=== PATIENT | female | born 1945 | race Caucasian/White ===

== ENCOUNTER 2021-07-27 20:04 | Observation (INO) | payer OTHER, SELFPAY ==
[2021-07-27] VITALS (7 sets, daily range): BP systolic 127–146; BP diastolic 73–114; PULSE 46–59; RESP 15–20; TEMP 36.1; O2SAT 100
--- NOTE | ~2021-07-27 | US_ITS ---
US abdomen limited INDICATION: Elevated liver function tests. Right upper quadrant pain. PROCEDURE: Realtime right upper abdominal ultrasound. COMPARISON: No prior studies for comparison. FINDINGS: The pancreas is normal without focal mass or pancreatic ductal dilation. Liver echotexture is normal without focal mass or intrahepatic biliary dilatation. There is normal directional flow i n the portal vein. There is a gallstone at the gallbladder neck. Common bile duct measures 4.6 mm. No sonographic Murp hy's sign. IMPRESSION: 1: Cholelithiasis. Reviewed, dictated and finalized at location A. MOTIVE HARDWARE ENGINEER IMPRESSION: 1: Cholelithiasis.
--- NOTE | ~2021-07-27 | XR_ITS ---
EXAMINATION: XR chest 2V DATE: 07/27/2021 20:46 INDICATION: Left-sided chest pain TECHNIQUE: PA and lateral views of the chest were obtained. COMPARISON: Chest radiograph dated 08/08/2007 FINDINGS: The lungs remain clear with no focal airspace opacities, pulmonary edema, pleural effusion or pneumot horax. The cardiomediastinal silhouette is normal. Mild S-shaped scoliosis of the thoracic and lumbar spine with moderate spondylosis. IMPRESSION: 1. No acute cardiopulmonary disease. Reviewed, dictated and finalized at location H. HOUSE OPERATOR
--- NOTE | 2021-07-27 20:07 | ECG_ITS ---
Measurements Intervals [place] Rate: 64 P: 82 GA: 149 QRS: 13 QRSD: 72 T: -49 QT: 394 QTc: 409 Interpretive Statements SINUS RHYTHM LOW QRS VOLTAGE IN PRECORDIAL LEADS T WAVE ABNORMALITY IN ANTEROLAT/INF LEADS- CONSIDER ISCHEMIA ABNORMAL ECG Electronically Signed On 07-28-2021 6:12:37 CHASER HELPER by See Fried D.O.
[2021-07-27 20:47] LABS: Basophils Absolute Auto 0.1 K/mm3 (0.0-0.1); Eosinophils Absolute Auto 1.1 K/mm3 (0-0.3); Eosinophils Percent Auto 15.7 % (0-4.4); Hemoglobin 11.4 g/dL (12.0-15.0); Immature Granulocyte Absolute 0.01 K/mm3 (0.00-0.031); Immature Granulocyte Percent A 0.1 % (0-0.5); Lymphocytes Absolute Auto 1.08 K/mm3 (0.9-3.2); Lymphocytes Percent Auto 15.5 % (18.3-44.2); Mean Corpuscular HGB Conc 32.6 g/dl (32-36); Mean Corpuscular Hemoglobin 31.8 pg (26-34); Mean Corpuscular Volume 97.8 fl (80-100); Monocytes Absolute Auto 0.6 K/mm3 (0.1-0.6); Monocytes Percent Auto 8.2 % (2.6-8.5); Neutrophils Absolute Auto 4.1 K/mm3 (1.3-6.7); Neutrophils Percent Auto 59.5 % (45.5-73.1); Platelet Count Result 173 k/mm3 (150-375); Red Blood Count 3.58 M/mm3 (4.2-5.4); Red Cell Distribution Width 13.2 % (11.5-14.5)
[2021-07-27 20:57] LABS: Alanine Aminotransferase 187 U/L (4-35); Albumin Level 4.5 g/dL (3.5-5.1); Alkaline Phosphatase 289 U/L (38-126); Anion Gap 11 mmol/L (8-16); Aspartate Amino Transferase 164 U/L (14-36); Bilirubin,Total 0.5 mg/dL (0.2-1.3); Blood Urea Nitrogen 15 mg/dL (7-17); Carbon Dioxide 24 mmol/L (22-30); Chloride 106 mmol/L (98-107); Estimated CRCL calculation 34 ml/min; Estimated Glomerular Filt Rate 54; Glucose 130 mg/dL (65-110); Lipase 191 U/L (23-300); Potassium 3.9 mmol/L (3.4-5.0); Sodium 141 mmol/L (137-145)
[2021-07-27 20:59] LABS: Prothrombin Time 12.8 Seconds (11.1-14.7)
[2021-07-27 21:00] LABS: Partial Thromboplastin Time 26.1 SECONDS (22.3-36.8)
[2021-07-27 21:11] LABS: Troponin I 0.057 ng/mL (0.000-0.034)
--- NOTE | 2021-07-27 21:57 | ED.GENADULT ---
HPI - General Adult General Chief complaint: Chest Pain Stated complaint: stabbing pain underneath my breast , recent MS Time Seen by Provider: 07/27/21 21:19 Source: patient and RN notes reviewed History of Present Illness HPI narrative: Patient is a 76 y/o female complaining of left lateral chest pain starting 4-5 hours ago. She describes her pain as sharp and it comes and goes. There is no known alleviating or exacerbating factor. She rates her pain as 5/10. She has no cough or SOB. Related Data Home Medications Medication Instructions Recorded Confirmed atorvastatin 07/27/21 07/27/21 metformin mg 07/27/21 metoprolol tartrate 07/27/21 ticagrelor [Brilinta] mg 07/27/21 Allergies Allergy/AdvReac Type Severity Reaction Status Date / Time Sulfa (Sulfonamide Allergy Severe HIVES Unverified 12/22/18 12:59 Antibiotics) ammonium chloride Allergy Unknown AMMONIA Verified 12/22/18 12:59 ALLERGY erythromycin base Allergy Unknown Unknown Verified 07/27/21 23:45 Penicillins Allergy Unknown Unknown Verified 07/27/21 23:45 codeine AdvReac Intermediate VOMITING Unverified 12/22/18 12:59 STRAWBERRIES Allergy Severe HIVES Uncoded 08/08/07 10:02 Review of Systems Constitutional: Constitutional: Denies chills, Denies fever(s), Denies headache(s) and Denies weakness Eyes: Eyes: Denies blurry vision ENT: Denies headache(s) and Denies neck pain Cardiovascular: Cardiovascular: Reports chest pain and Denies dyspnea Respiratory: Respiratory: Denies cough and Denies dyspnea Gastrointestinal: Gastrointestinal: Denies abdominal pain, Denies diarrhea, Denies nausea and Denies vomiting Genitourinary: Genitourinary: Denies hematuria and Denies dysuria Musculoskeletal: Musculoskeletal: Denies back pain and Denies neck pain Neurologic: Denies headache(s) and Denies weakness [facility] Family History Family History Other Diabetes mellitus Social History Social History Alcohol intake: current Exam Const: General: no acute distress and well developed Orientation/consciousness: oriented to person, oriented to place, oriented to time and patient oriented x3 HENMT: Head: normocephalic Ears: external ears normal General nose exam: Normal external nose present Eyes: General: appearance normal, both eyes and all related structures Conjunctivae: conjunctivae normal Neck: Neck: normal visual inspection and full ROM Chest: Chest palpation & inspection: normal inspection of the chest and no tenderness Resp: Effort & Inspection: normal respiratory effort Auscultation: clear to auscultation bilaterally Cardio: Rate: regular rate Rhythm: regular rhythm GI: GI Palp: No abdominal tenderness and Yes Soft to palpation Skin: General skin exam: normal color and turgor normal Neuro: General: oriented to person, oriented to place, oriented to time and patient oriented x3 Cognition (Neuro): normal cognition Extrem: General: normal to inspection, full ROM and no pedal edema Psych: Appearance: grossly normal Mental Status: mental status grossly normal Affect: normal affect Course Consultations Consultation #1: Discussed with Dr. Victoria, who agrees to admit. Date: 07/28/21 Time: 01:58 Vital Signs Vital signs: Vital Signs Temperature 36.1 C L 07/27/21 20:08 Pulse Rate 59 L 07/27/21 20:08 Respiratory Rate 18 07/27/21 20:08 Blood Pressure 141/114 H 07/27/21 20:08 Pulse Oximetry 100 07/27/21 20:08 Temperature 36.7 C 07/28/21 13:54 Pulse Rate 78 07/28/21 13:54 Respiratory Rate 18 07/28/21 13:54 Blood Pressure 138/72 07/28/21 13:54 Pulse Oximetry 99 07/28/21 13:54 Medical Decision Making Vital Signs Vital Signs: Vital Signs Temperature 36.1 C L 07/27/21 20:08 Pulse Rate 59 L 07/27/21 20:08 Respiratory Rate 18 07/27/21 20:08 Blood Pressure 141/114 H 07/27/21 20:08
[2021-07-27] MEDS: ASPIRIN 81 MG CHEWABLE TABLET 324 MG PO (22:11)
[2021-07-27 22:18] LABS: D Dimer 0.38 ug/mL (<0.48)
[2021-07-28] VITALS (10 sets, daily range): BP systolic 113–164; BP diastolic 57–72; PULSE 48–84; RESP 15–22; TEMP 36.5–36.7; O2SAT 97–100
[2021-07-28 00:04] LABS: Troponin I 0.062 ng/mL (0.000-0.034)
[2021-07-28 04:01] LABS: Troponin I 0.054 ng/mL (0.000-0.034)
--- NOTE | 2021-07-28 04:09 | PM.IMHP ---
H&P: HPI History of Present Illness Date/Time: 07/28/21 04:09 Chief Complaint: Flank pain Narrative: This is a 76-year-old female with past medical history significant for NM, coronary artery disease, status post stent placement. Patient presented to the emergency room due to pain around the area of the left-sided rib cage and flank. Preliminary workup was significant for elevated troponins. According to patient she has been in her usual state of health she denies any falls, any cough ,any shortness of breath, any sputum production, leg swelling, chest pain, PND or orthopnea, no syncope, no near-syncope, no lightheadedness, no fevers, no rigors, no chills. Workup was significant for elevated liver enzymes, a chest x-ray was clear. Patient has been placed in observation for further evaluation, management and treatment. Review of Systems Review of Systems: Ribcage in flank pain on the left side Constitutional: Constitutional: Denies chills, Denies fever(s), Denies malaise, Denies night sweats and Denies weakness Eyes: Eyes: Denies change in vision Cardiovascular: Cardiovascular: Denies claudication, Denies radiating jaw, neck or arm pain, Denies palpitations, Denies dyspnea, Denies dyspnea on exertion and Denies orthopnea Respiratory: Respiratory: Denies cough, Denies excessive phlegm production, Denies dyspnea and Denies wheezing Gastrointestinal: Gastrointestinal: Denies dyspepsia, Denies heartburn, Denies diarrhea, Denies nausea and Denies vomiting Genitourinary: Genitourinary: Denies dysuria Musculoskeletal: Musculoskeletal: Denies arthralgias, Denies joint swelling and Denies muscle weakness Integumentary/Breasts: Skin/Breast: Denies rash Neurologic: Denies focal weakness and Denies Sensory deficit (Neuro) Psychiatric: Psychiatric: Reports no additional psychiatric complaints and Reports as per HPI Endocrine: Endocrine: Reports no additional endocrine complaints and Reports as per HPI Hematologic/Lymphatic: Hematologic/Lymphatic: Reports no additional hematologic/lymphatic complaints and Reports as per HPI Allergic/Immunologic: Allergic/Immunologic: Reports no additional allergic/immunologic complaints and Reports as per HPI ON LICENSE OF [facility] Family History Family History Other Diabetes mellitus Social History Social History Alcohol intake: current Meds Home Medications and Allergies Home Medications Medication Instructions Recorded Confirmed Type atorvastatin 07/27/21 07/27/21 History metformin mg 07/27/21 History metoprolol tartrate 07/27/21 History ticagrelor [Brilinta] mg 07/27/21 History Allergies Allergy/AdvReac Type Severity Reaction Status Date / Time Sulfa (Sulfonamide Allergy Severe HIVES Unverified 12/22/18 12:59 Antibiotics) ammonium chloride Allergy Unknown AMMONIA Verified 12/22/18 12:59 ALLERGY erythromycin base Allergy Unknown Unknown Verified 07/27/21 23:45 Penicillins Allergy Unknown Unknown Verified 07/27/21 23:45 codeine AdvReac Intermediate VOMITING Unverified 12/22/18 12:59 STRAWBERRIES Allergy Severe HIVES Uncoded 08/08/07 10:02 Vital Signs Vital Signs - 24 hr 07/27/21 20:08 07/27/21 22:17 07/27/21 22:18 Temperature 97 F L Pulse Rate 59 L 56 L 55 L Respiratory Rate 18 17 16 Blood Pressure 141/114 H 127/87 Pulse Oximetry 100 07/27/21 23:24 07/27/21 23:42 07/27/21 23:43 Temperature Pulse Rate 46 L 49 L 53 L Respiratory Rate 15 15 Blood Pressure 140/83 146/73 H Pulse Oximetry 100 07/27/21 23:44 07/28/21 00:01 07/28/21 00:31 Temperature Pulse Rate 52 L 49 L 50 L Respiratory Rate 20 16 17 Blood Pressure 146/73 H 134/65 127/62 Pulse Oximetry 100 100 07/28/21 01:01 07/28/21 01:31 07/28/21 02:47 Temperature 97.7 F Pulse Rate 52 L 48 L 54 L Respiratory Rate 15 15 15 Blood Pressure 137/63 154/63 H 164/57 H Pulse Oximetry 10
--- NOTE | 2021-07-28 04:26 | ECG_ITS ---
Measurements Intervals [place] Rate: 55 P: 28 MA: 140 QRS: -11 QRSD: 73 T: -46 QT: 437 QTc: 418 Interpretive Statements SINUS BRADYCARDIA LOW QRS VOLTAGE IN PRECORDIAL LEADS T WAVE ABNORMALITY IN ANTEROLAT/INF LEADS- CONSIDER ISCHEMIA BASELINE ARTIFACT- I, II, AVR ABNORMAL ECG Electronically Signed On 07-28-2021 6:20:16 COSMETIC CHEMIST by See Fried D.O.
[2021-07-28 06:42] LABS: Troponin I 0.048 ng/mL (0.000-0.034)
--- NOTE | 2021-07-28 08:55 | PM.CNCAR ---
Assessment and Plan Additional Plan 76-year-old lady presenting with a chest pain syndrome yesterday intermittent left lateral inframammary pain that is highly atypical and in my opinion not suggestive of myocardial ischemia. Obviously she and her family were concerned about her cardiac status given her recent acute coronary event and percutaneous stenting that was done at [facility] as described above. She did not have any significant disease elsewhere and she is certainly is in the range of time where an abrupt stent thrombosis could occur however that obviously did not occur since she has not presented with an acute ST segment elevation anterior NV. her electrocardiogram shows some shallow T-wave inversions which are actually better than the appearance of her ECG that was done upon discharge in [place]. Her troponin levels are out of normal range but this is a flat pattern which also is not diagnostic or suggestive of an acute coronary syndrome. I believe this patient can be discharged with reassurance and she already has active follow-up scheduled in my office because of a history outlined above. If you have questions regarding this opinion her this situation please let me know Carroll Lopez MD [facility] History of Present Illness History of Present Illness Consult date/time: 07/28/21 08:55 Consult reason: chest pain Reason For Visit: Chest Pain Narrative: This is a 76-year-old lady I am seeing at the request of the hospitalist this morning she. She is located in the emergency room waiting for a bed to be admitted upstairs because of chest pain. The patient has was in her usual state of good health until last evening when she started to experience episodes of left lateral inframammary chest pain that were coming and going through the course of the evening. She describes this as brief episodes of pain lasting for a few seconds sometimes a few minutes and then would resolve. The symptoms are not associated with any nausea vomiting diaphoresis. There was no radiation of the pain to any other location. The symptoms created concerned because of her recent diagnosis of coronary artery disease and recent NV. as a result of this she was brought to this hospital's emergency room by her family. She was evaluated in the ED. She has been free of this symptom all night and as of this morning and feels relatively well. She has an electrocardiogram that shows a sinus mechanism with precordial shallow T-wave inversion. She has had 4 troponin levels done which are all slightly out of normal range but the trend is not rising it is a flat trend of troponin levels. In this setting I am seeing her in consultation. I know this lady from recent office consultation in the early part of June. She was hospitalized in the June at [facility] she was taken there from [place] with chest pain and evidence of acute coronary syndrome/acute NV. She at that time had central to upper precordial pressure-like chest pain associated with diaphoresis. She states her symptoms of last evening are not similar to the pain that she had at that time. She was brought to the cardiac catheterization lab where she was found to have high-grade stenosis in the left anterior descending. She was treated with successful percutaneous revascularization receiving 2 drug-eluting stents to the LAD with no angiographic complications and unremarkable uneventful recovery following her procedure. She had no significant lesions elsewhere. The patient after her intervention became agitated and left the hospital against medical advice later that same evening apparently. She fortunately was given prescriptions for her medications including her Brilinta metoprolol and atorvastatin. She was referred to see me in the office to establish ongoing care and follow-up. I saw her at for that appointment on 06/15/2021 at which time she was reporting no problems
[2021-07-28 09:02] LABS: Alanine Aminotransferase 160 U/L (4-35); Albumin Level 4.2 g/dL (3.5-5.1); Alkaline Phosphatase 244 U/L (38-126); Aspartate Amino Transferase 107 U/L (14-36); Bilirubin,Total 0.6 mg/dL (0.2-1.3)
[2021-07-28 09:10] LABS: Creatine Kinase 55 U/L (30-135)
[2021-07-28 09:12] LABS: Hemoglobin A1C 6.6 % (<5.7)
--- NOTE | 2021-07-28 09:13 | PC.NURSE ---
THis RN into pts room to give medication. Pt states she was informed by bullet casting operator to take her own medication. No doses of medication given to pt by this RN
[2021-07-28 09:16] LABS: NT Pro B Type Natriuretic Pept 943 pg/mL (5-100)
[2021-07-28 11:46] LABS: Hepatitis B Surface Antigen Negative (Negative)
[2021-07-28 11:52] LABS: HAV RESULT Negative (Negative); Hepatitis B Core IgM Result Negative (Negative)
[2021-07-28 12:04] LABS: Hepatitis C Virus Antibody Negative (Negative)
--- NOTE | 2021-07-28 12:31 | PM.DS ---
DS: Admitting Diagnosis Discharge Date 07/28/21 Admitting Diagnosis chest pain DS: Discharge Diagnosis Discharge Diagnosis (1) Elevated troponin I level: Code(s): R77.8 - Other specified abnormalities of plasma proteins Status: Acute (2) Elevated LFTs: Code(s): R79.89 - Other specified abnormal findings of blood chemistry Status: Acute (3) Coronary artery disease: Code(s): I25.10 - Atherosclerotic heart disease of [place] coronary artery without angina pectoris Status: Acute (4) Flank pain: Code(s): R10.9 - Unspecified abdominal pain Status: Acute DS: Summary Hospital Course Hospital Course: Date of service 07/28/2021 Patient is a 76-year-old female with a recent coronary stenting last month who presented to the emergency room for left sided flank/chest pain worse with palpation. Vitals in the ER were temperature 36.1? C, pulse 59, respiratory rate 18, blood pressure 141/114, pulse ox 100 on room air. Initial CBC showed a white blood cell count 7.0, hemoglobin 11.4, hematocrit 35.0, platelets 173. BMP relatively normal with exception of random glucose 130. D-dimer negative. Troponins were elevated initial 1 being 0.057--> 0.062--> 0.054--> 0.048. EKG showed inverted T-waves in the inferior and lateral leads but no EKG prior to compare it to. Cardiology was consulted and did not suspect acute plaque rupture or stent occlusion. The patient's pain appeared to be muscular as it was worse on palpation to the flank/rib area. She had no trauma and no rashes there at this time. She said the pain with deep palpation was almost completely resolved by the time I saw her and she was ready to go home. While she was here it was noted that her liver enzymes were quite elevated. Her AST was 164 on admission and the next day was 107. ALT was 187 on admission and the next day was 160. Alk-phos was 289 on admission and 244 the next day. Bilirubin normal. Patient had absolutely no pain in the right upper quadrant area. She did have a history of alcohol use and was newly on statin therapy. Her CK was normal. She was eating and drinking fine without any pain. Her right upper quadrant ultrasound showed cholelithiasis with the normal common bile duct reading and no signs of acute cholecystitis. I spoke with the patient about the findings and since she is feeling well and her liver enzymes are trending down, she is going to follow up with her primary care physician. I am asking her to hold her statin therapy for a week and then repeat her liver enzymes. Is important that she has cholesterol control so she needs to talk to her primary or plastics fabricator about alternative treatments if this is found to be the cause of her liver enzymes. She understands this. She is to follow up with her primary care physician for results and further management from there. I called his office and left a message with their staff. Status at Discharge Overall status at discharge: patient is back to baseline Time Spent with Patient Time attestation: Total time spent providing and/or coordinating discharge services:38 min Time spent: Greater than 30 minutes Exam Narrative: General: Well developed well nourished patient in NAD HEENT: normocephalic Neck: supple Neuro: Alert and oriented x4 CV:RRR. Pain to palpation to the ribcage on the left flank with deep palpation. No pain with light palpation IP. No signs of rashes Resp:CTA Abd: Soft, non distended. No hepatosplenomegaly. No pain to palpation. Positive bowel sounds Extremities: No swelling, erythema, or pain to palpation. DS: Data Data Completed and Pending Labs on day of discharge: Labs from last 24 hours 07/28/21 07/28/21 07/28/21 10:18 05:43 05:40 WBC RBC Hgb Hct MCV MCH MCHC RDW Plt Count MPV Immature Gran % (Auto) Neut % (Auto) Lymph % (Auto) [place] % (Auto) Eos % (Auto) Baso % (Auto) Lymph
== END 2021-07-28 13:57 | disposition home or self-care (01) ==
LOC: ANHED 21:40 → ANHIMU 07-28 06:56 → ANH3MEDSUR 08-10 11:02
PROVIDERS: Emergency Medicine; Physician Assistant; Admitting Provider Internal Medicine; Emergency Provider Emergency Medicine; PCP Specialist; Visit Provider Internal Medicine
DX: R77.8 Other specified abnormalities of plasma proteins (principal); R07.9 Chest pain, unspecified; R79.89 Other specified abnormal findings of blood chemistry; R10.9 Unspecified abdominal pain; I25.10 Atherosclerotic heart disease of native coronary artery without angina pectoris; I25.2 Old myocardial infarction; Z95.5 Presence of coronary angioplasty implant and graft; Z79.01 Long term (current) use of anticoagulants
CPT/HCPCS: 36415; 71046; 76705; 80053; 80074; 80076; 82550; 83036; 83690; 83880; 84484; 85025; 85380; 85610; 85730; 93005; 99285; A9270; G0378

== ENCOUNTER 2021-08-16 10:52 | Outpatient (CLI) | payer OTHER, SELFPAY ==
[2021-08-16 11:47] LABS: Alanine Aminotransferase 185 U/L (4-35); Albumin Level 4.6 g/dL (3.5-5.1); Alkaline Phosphatase 458 U/L (38-126); Anion Gap 8 mmol/L (8-16); Aspartate Amino Transferase 88 U/L (14-36); Bilirubin,Total 0.7 mg/dL (0.2-1.3); Blood Urea Nitrogen 18 mg/dL (7-17); Carbon Dioxide 25 mmol/L (22-30); Chloride 103 mmol/L (98-107); Estimated Glomerular Filt Rate 44; Glucose 128 mg/dL (65-110); Potassium 4.9 mmol/L (3.4-5.0); Sodium 136 mmol/L (137-145)
== END 2021-08-16 10:53 | disposition home or self-care (01) ==
PROVIDERS: PCP Family Medicine; Visit Provider Nurse Practitioner Adult Health
DX: R74.8 Abnormal levels of other serum enzymes (principal)
CPT/HCPCS: 36415; 80053

== ENCOUNTER 2021-09-11 08:51 | Outpatient (CLI) | payer OTHER, SELFPAY ==
[2021-09-11 09:38] LABS: Alanine Aminotransferase 23 U/L (4-35); Albumin Level 4.3 g/dL (3.5-5.1); Alkaline Phosphatase 181 U/L (38-126); Aspartate Amino Transferase 27 U/L (14-36); Bilirubin,Total 0.3 mg/dL (0.2-1.3)
== END 2021-09-11 08:52 | disposition home or self-care (01) ==
PROVIDERS: PCP Family Medicine; Visit Provider Nurse Practitioner Adult Health
DX: R74.8 Abnormal levels of other serum enzymes (principal)
CPT/HCPCS: 36415; 80076

== ENCOUNTER 2021-10-18 11:32 | Emergency (ER) | payer OTHER, SELFPAY ==
--- NOTE | ~2021-10-18 | US_ITS ---
EXAMINATION:US venous doppler LE LT INDICATION:Left calf pain TECHNIQUE: Multiple grayscale, color flow and Doppler images of the left lower extremity deep venous systems were obtained and reviewed. COMPARISON:08/21/2007 FINDINGS: The common femoral, superficial femoral and popliteal veins demonstrate normal respiratory variation, augmentation and compressibility. Color flow is also seen within the posterior tibial, pe roneal, greater saphenous and profunda veins. IMPRESSION: 1: No lower extremity deep venous thrombosis. Reviewed, dictated and finalized at location B.
[2021-10-18 11:34] VITALS: BP 91/50; PULSE 74; RESP 14; TEMP 36.8; O2SAT 100
--- NOTE | 2021-10-18 13:08 | ED.EXTPRO ---
HPI - Extremity Problem General Chief complaint: Extremity Problem,Nontraumatic Stated complaint: lower extremity swelling Time Seen by Provider: 10/18/21 11:56 Source: patient, RN notes reviewed and old records reviewed Mode of arrival: ambulatory Limitations: no limitations History of Present Illness HPI Narrative: This is a 76 year old female who presents for evaluation of left calf pain. Patient states she was in bed and she developed severe pain that she describes as nae horse . This pain last a few minutes and it has completely resolved. She reports having similar pain several months ago. She denies history of PE/DVT. She has not pain now. She denies numbness, tingling. She has noticed varicose veins to her left leg. She denies chest pain, dizziness or shortness of breath. She had coronary stent placed in June and she is taking aspirin with Brillinta. Related Data Home Medications Medication Instructions Recorded Confirmed atorvastatin 07/27/21 07/27/21 metformin mg 07/27/21 metoprolol tartrate 07/27/21 ticagrelor [Brilinta] mg 07/27/21 Allergies Allergy/AdvReac Type Severity Reaction Status Date / Time Sulfa (Sulfonamide Allergy Severe HIVES Unverified 10/18/21 11:37 Antibiotics) ammonium chloride Allergy Unknown AMMONIA Verified 10/18/21 11:37 ALLERGY erythromycin base Allergy Unknown Unknown Verified 10/18/21 11:37 Penicillins Allergy Unknown Unknown Verified 10/18/21 11:37 codeine AdvReac Intermediate VOMITING Unverified 10/18/21 11:37 STRAWBERRIES Allergy Severe HIVES Uncoded 10/18/21 11:37 Review of Systems Review of Systems: All systems reviewed & are unremarkable except as noted in HPI and below PMFSH Past Medical History Medical History (Updated 10/18/21 @ 15:17 by Vilma Hathaway MD) Coronary artery disease Diabetes mellitus Surgical History Surgical History (Updated 10/18/21 @ 13:10 by Vilma Hathaway MD) History of coronary artery stent placement Family History Family History Other Diabetes mellitus Social History Social History Alcohol intake: current Exam Const: General: no acute distress and alert Orientation/consciousness: patient oriented x3 Eyes: EOM: EOMs intact bilaterally Chest: Chest palpation & inspection: normal inspection of the chest Resp: Effort & Inspection: normal respiratory effort and no use of accessory muscles Auscultation: clear to auscultation bilaterally Cardio: Rate: regular rate Rhythm: regular rhythm Heart sounds: no murmurs GI: GI Palp: Yes Soft to palpation, No Tenderness to palpation present (GI) and No Guarding due to palpation present (GI) Auscultation: normal bowel sounds Other: guaic positive brown stool Skin: General skin exam: normal color Rashes: no rashes Neuro: General: patient oriented x3, moves all extremities and CN's II-XI intact bilaterally Extrem: General: no pedal edema Other: no calf tenderness, there are varicose veins to lower extremities Psych: Mental Status: mental status grossly normal Affect: normal affect Course Reevaluation(s) Reevaluation #1: On review patient's labs. Her hemoglobin decreased to 8. 4 in 3 months. She has brown stool that is gauic positive. I stressed to patient that she should be admitted for evaluation by GI and consultation to cardiology regarding antiplatelets. I spoke with Anusha Marquez who states to continue aspirin and brillinta. Patient is refusing admission . She is leaving AMA. She has nevere had colonoscopy and I have discussed with patient she needs to be seen. Date: 10/18/21 Time: 15:13 Reevaluation #2: PCP . Dr. King made aware. Date: 10/18/21 Time: 19:16 Vital Signs Vital signs: Vital Signs Temperature 98.2 F 10/18/21 11:34 Pulse Rate 74 10/18/21 11:34 Respiratory Rate 14 10/18/21 11:34 Blood Pressure 91/50
[2021-10-18 13:28] LABS: Basophils Percent Auto 0.6 % (0.2-1.2); Eosinophils Absolute Auto 0.3 K/mm3 (0-0.3); Eosinophils Percent Auto 3.7 % (0-4.4); Hemoglobin 8.1 g/dL (12.0-15.0); Immature Granulocyte Absolute 0.01 K/mm3 (0.00-0.031); Immature Granulocyte Percent A 0.1 % (0-0.5); Lymphocytes Absolute Auto 0.87 K/mm3 (0.9-3.2); Lymphocytes Percent Auto 12.5 % (18.3-44.2); Mean Corpuscular Hemoglobin 28.5 pg (26-34); Mean Corpuscular Volume 95.1 fl (80-100); Monocytes Absolute Auto 0.6 K/mm3 (0.1-0.6); Monocytes Percent Auto 8.9 % (2.6-8.5); Neutrophils Absolute Auto 5.2 K/mm3 (1.3-6.7); Neutrophils Percent Auto 74.2 % (45.5-73.1); Platelet Count Result 243 k/mm3 (150-375); Red Blood Count 2.84 M/mm3 (4.2-5.4); Red Cell Distribution Width 12.6 % (11.5-14.5)
[2021-10-18 13:39] LABS: Alanine Aminotransferase 12 U/L (4-35); Albumin Level 4.2 g/dL (3.5-5.1); Alkaline Phosphatase 104 U/L (38-126); Anion Gap 4 mmol/L (8-16); Aspartate Amino Transferase 28 U/L (14-36); Bilirubin,Total 0.2 mg/dL (0.2-1.3); Blood Urea Nitrogen 23 mg/dL (7-17); Calcium 8.9 mg/dL (8.4-10.2); Carbon Dioxide 27 mmol/L (22-30); Chloride 105 mmol/L (98-107); Estimated CRCL calculation 34 ml/min; Estimated Glomerular Filt Rate 54; Glucose 131 mg/dL (65-110); Magnesium 2.2 mg/dL (1.6-2.3); Potassium 4.2 mmol/L (3.4-5.0); Sodium 136 mmol/L (137-145)
[2021-10-18 13:41] LABS: INR 1.1; Prothrombin Time 13.6 Seconds (11.1-14.7)
[2021-10-18 13:42] LABS: Partial Thromboplastin Time 26.3 SECONDS (22.3-36.8)
[2021-10-18 14:40] VITALS: BP 104/60; PULSE 78; RESP 16; O2SAT 97
== END 2021-10-18 15:33 | disposition left against medical advice (07) ==
PROVIDERS: Emergency Provider General Practice; PCP Family Medicine
DX: M79.662 Pain in left lower leg (principal); R19.5 Other fecal abnormalities; E11.9 Type 2 diabetes mellitus without complications; I25.10 Atherosclerotic heart disease of native coronary artery without angina pectoris; Z95.5 Presence of coronary angioplasty implant and graft; Z79.82 Long term (current) use of aspirin; Z79.02 Long term (current) use of antithrombotics/antiplatelets; Z79.84 Long term (current) use of oral hypoglycemic drugs
CPT/HCPCS: 36415; 80053; 83735; 85025; 85610; 85730; 93971; 99284

== ENCOUNTER 2021-10-19 10:52 | Inpatient (IN) | payer OTHER, SELFPAY ==
[2021-10-19] VITALS (22 sets, daily range): BP systolic 117–150; BP diastolic 57–73; PULSE 49–83; RESP 13–24; TEMP 36.3; O2SAT 99–100; BMI 21.9; BMI 22.0
--- NOTE | ~2021-10-19 | XR_ITS ---
EXAMINATION: XR small bowel follow through DATE: 10/20/2021 14:36 INDICATION: Blood in stool. Anemia. TECHNIQUE: Oral contrast was administered, and a time course of radiographs of the abdomen was obtain ed. Fluoroscopy of the small bowel was performed. Fluoroscopy exposure time was 0.3 minutes. The tota l number of images was 223. COMPARISON: None. FINDINGS: There is no abnormal mass or stricture. The terminal ileum is normal. Transit time from the stomach t o proximal colon was approximately 30 minutes. IMPRESSION: 1. Normal small bowel series. Reviewed, dictated and finalized at location A.
[2021-10-19 11:15] LABS: Basophils Absolute Auto 0.1 K/mm3 (0.0-0.1); Basophils Percent Auto 0.8 % (0.2-1.2); Eosinophils Absolute Auto 0.3 K/mm3 (0-0.3); Eosinophils Percent Auto 3.3 % (0-4.4); Hematocrit 25.9 % (37.0-47.0); Hemoglobin 7.8 g/dL (12.0-15.0); Immature Granulocyte Absolute 0.01 K/mm3 (0.00-0.031); Immature Granulocyte Percent A 0.1 % (0-0.5); Lymphocytes Absolute Auto 1.25 K/mm3 (0.9-3.2); Lymphocytes Percent Auto 16.3 % (18.3-44.2); Mean Corpuscular HGB Conc 30.1 g/dl (32-36); Mean Corpuscular Hemoglobin 28.8 pg (26-34); Mean Corpuscular Volume 95.6 fl (80-100); Mean Platelet Volume 9.8 fl (7.4-10.4); Monocytes Absolute Auto 0.8 K/mm3 (0.1-0.6); Neutrophils Absolute Auto 5.4 K/mm3 (1.3-6.7); Neutrophils Percent Auto 69.5 % (45.5-73.1); Platelet Count Result 253 k/mm3 (150-375); Red Blood Count 2.71 M/mm3 (4.2-5.4); Red Cell Distribution Width 12.8 % (11.5-14.5); White Blood Count 7.7 K/mm3 (4.5-10.0)
[2021-10-19 11:23] LABS: Alanine Aminotransferase 12 U/L (4-35); Albumin Level 4.4 g/dL (3.5-5.1); Alkaline Phosphatase 97 U/L (38-126); Anion Gap 5 mmol/L (8-16); Aspartate Amino Transferase 23 U/L (14-36); Bilirubin,Total 0.2 mg/dL (0.2-1.3); Blood Urea Nitrogen 22 mg/dL (7-17); Calcium 9.1 mg/dL (8.4-10.2); Carbon Dioxide 24 mmol/L (22-30); Chloride 107 mmol/L (98-107); Estimated CRCL calculation 48 ml/min; Estimated Glomerular Filt Rate 54; Glucose 126 mg/dL (65-110); Potassium 4.7 mmol/L (3.4-5.0); Sodium 136 mmol/L (137-145)
[2021-10-19 11:24] LABS: Prothrombin Time 12.7 Seconds (11.1-14.7)
[2021-10-19 11:25] LABS: Partial Thromboplastin Time 23.2 SECONDS (22.3-36.8)
--- NOTE | 2021-10-19 12:15 | ED.GENADULT ---
HPI - General Adult General Chief complaint: GI Bleed Stated complaint: gi bleed Time Seen by Provider: 10/19/21 11:56 Source: patient, RN notes reviewed and old records reviewed History of Present Illness HPI narrative: 76-year-old female presenting to the emergency department for reevaluation. Patient was seen in the ED yesterday and was found to be anemic with guaiac positive stool. Patient was encouraged to be admitted last night but patient declined. Patient did sign AMA at the time. Patient did return to the emergency department today to continue her work-up. Patient is a poor historian but denies any complaint at this time. Patient denies any chest pain or shortness of breath. Patient denies any focal numbness or weakness. Patient states that she has had some dark stool. Patient is on Brilinta. Patient did have some cardiac stents placed in June and has been on Brilinta since that time. Related Data Home Medications Medication Instructions Recorded Confirmed metformin 500 mg PO HS 07/27/21 10/19/21 metoprolol tartrate 25 mg PO BID 07/27/21 10/19/21 ticagrelor [Brilinta] 90 mg PO BID 07/27/21 10/19/21 aspirin [Adult Aspirin] 81 mg PO DAILY 10/19/21 10/19/21 pantoprazole [Protonix] 40 mg PO BID 10/19/21 10/19/21 Allergies Allergy/AdvReac Type Severity Reaction Status Date / Time strawberry Allergy Severe Hives Verified 10/19/21 18:11 Sulfa (Sulfonamide Allergy Severe HIVES Verified 10/19/21 14:45 Antibiotics) ammonium chloride Allergy Unknown AMMONIA Verified 10/19/21 14:45 ALLERGY erythromycin base Allergy Unknown Unknown Verified 10/19/21 14:45 Penicillins Allergy Unknown Unknown Verified 10/19/21 14:45 codeine AdvReac Intermediate VOMITING Verified 10/19/21 14:45 Review of Systems Review of Systems: CONSTITUTIONAL: Denies fever, chills, or sweats. EYES: Denies visual changes, redness, or discharge. ENT: Denies rhinorrhea, congestion, sore throat, or otalgia. CARDIOVASCULAR: Denies chest pain, palpitations, or edema. RESPIRATORY: Denies cough or dyspnea. GASTROINTESTINAL: Denies abdominal pain, nausea, vomiting, or diarrhea. GENITOURINARY: Denies dysuria or hematuria. SKIN: Denies rash or itching. MUSCULOSKELETAL: Denies back pain, joint pain, or myalgia. NEUROLOGIC: Denies headache, numbness, or weakness. PSYCHIATRIC: Denies anxiety or depression. [facility] Past Medical History Medical History (Updated 10/19/21 @ 18:27 by Gabi Rodriguez APRN) Asthma Coronary artery disease Diabetes mellitus Dyslipidemia Peptic ulcer disease Surgical History Surgical History (Updated 10/19/21 @ 18:28 by Gabi Rodriguez APRN) History of coronary artery stent placement History of total knee replacement Right knee History of tubal ligation Family History Family History Other Diabetes mellitus Social History Social History Smoking status: Never smoker Second hand tobacco smoke exposure: Yes Alcohol intake: former Substance use: never Substance use type: does not use Spiritual care concerns: No Exam Narrative: APPEARANCE: Well appearing, no pain, no distress, well-nourished. HEAD: normocephalic, atraumatic. EYES: PERRLA/EOMI, conjunctivae clear. NOSE: Normal no drainage RESPIRATORY: Airway patent, respirations nonlabored. Clear to auscultation bilaterally, no rales, rhonchi, wheezing. CARDIOVASCULAR: Regular rate and rhythm without murmurs rubs or gallops. ABDOMINAL: Soft, nontender, nondistended, normal bowel sounds. Nonthrombosed hemorrhoids on rectal exam. Trace Hemoccult positive with brown stool. MUSCULOSKELETAL: Moves all extremities. Strength/ROM intact, No edema, No calf tenderness. NEURO: Alert. Cranial nerves II through XII intact. Good gait. Good coordination SKIN: Warm, dry. Normal Color PSYCHIATRIC: Normal affect/mood. Course Course Emergency Course: Maia
--- NOTE | 2021-10-19 12:47 | PC.NURSE ---
Dr. Machuca at bedside to obtain occult stool sample.
[2021-10-19] MEDS: PANTOPRAZOLE SODIUM IV 40 MG VIAL IV PUSH (13:10)
--- NOTE | 2021-10-19 14:46 | ADMGEN ---
This patient, Cathie Joya, was admitted to 3 [facility] Surg Room 302-01. Patient/family oriented to hospital policies and general routines including ID bracelet, bed and alarms, visiting hours, pain management, procedures, bathroom and other care routines, personal items, smoking policy, room service/diet, and visiting hours. Information on how to activate the Rapid Response Team has been discussed. Patient/Family are encouraged to report perceived risks to care and to ask questions if they do not understand what they are told or what they should do.
[2021-10-19 16:10] LABS: Glucose Point of Care 109 mg/dl (65-105)
--- NOTE | 2021-10-19 17:30 | PM.IMHP ---
H&P: HPI History of Present Illness Date/Time: Patient requires inpatient monitoring with expected length of stay to exceed 2 midnights for management of care. 10/19/21 1730 Chief Complaint: Anemia Narrative: Ms. Joya is a 76-year-old female who presented emergency room with anemia. Patient states she was seen last night in the emergency room because she was ?not feeling well ?and she had a ?odd feeling in her chest? blood count was performed and patient was noted to be anemic compared to her July laboratories under was advised that patient stay for admission. At that time patient refused to sign against medical advice. Patient states that she came back today because she knew her blood counts were low and she would have further evaluation. Patient denies any melena or hematochezia. Patient denies any hematemesis. Patient denies any abdominal pain, nausea, vomiting, constipation, or diarrhea. Patient states she has felt fine except for this ?odd feeling she had her chest. Patient is extremely poor historian so it is difficult to get information from her. Patient denies any shortness for breath, lightheadedness, dizziness, syncopal, or near syncopal episodes. Patient states she did have a stent placed at [facility] in her heart in June of 2021. Patient states she has been taking all medications without any difficulty. Patient states she has a known history of coronary artery disease status post stent placement, dyslipidemia, diabetes mellitus, peptic ulcer disease when she was much younger, and asthma. Review of Systems Review of Systems: A 12 point review of systems was completed patient all pertinent positive and negative per HPI the remainder are unremarkable. [facility] Past Medical History Medical History (Updated 10/19/21 @ 18:27 by Gabi Rodriguez APRN) Asthma Coronary artery disease Diabetes mellitus Dyslipidemia Peptic ulcer disease Surgical History Surgical History (Updated 10/19/21 @ 18:28 by Gabi Rodriguez APRN) History of coronary artery stent placement History of total knee replacement Right knee History of tubal ligation Family History Family History Other Diabetes mellitus Social History Social History Smoking status: Never smoker Second hand tobacco smoke exposure: Yes Alcohol intake: former Substance use: never Substance use type: does not use Spiritual care concerns: No Meds Home Medications and Allergies Home Medications Medication Instructions Recorded Confirmed Type metformin 500 mg PO HS 07/27/21 10/19/21 History metoprolol tartrate 25 mg PO BID 07/27/21 10/19/21 History ticagrelor [Brilinta] 90 mg PO BID 07/27/21 10/19/21 History aspirin [Adult Aspirin] 81 mg PO DAILY 10/19/21 10/19/21 History pantoprazole [Protonix] 40 mg PO BID 10/19/21 10/19/21 History Allergies Allergy/AdvReac Type Severity Reaction Status Date / Time strawberry Allergy Severe Hives Verified 10/19/21 18:11 Sulfa (Sulfonamide Allergy Severe HIVES Verified 10/19/21 14:45 Antibiotics) ammonium chloride Allergy Unknown AMMONIA Verified 10/19/21 14:45 ALLERGY erythromycin base Allergy Unknown Unknown Verified 10/19/21 14:45 Penicillins Allergy Unknown Unknown Verified 10/19/21 14:45 codeine AdvReac Intermediate VOMITING Verified 10/19/21 14:45 Vital Signs Vital Signs - 24 hr 10/19/21 10:56 10/19/21 11:26 10/19/21 11:30 Pulse Rate 61 52 L 52 L Respiratory Rate 20 16 13 Blood Pressure 150/66 H Pulse Oximetry 100 100 100 10/19/21 11:31 10/19/21 11:54 10/19/21 12:00 Pulse Rate 52 L 49 L 55 L Respiratory Rate 15 17 16 Blood Pressure 133/60 Pulse Oximetry 100 100 100 10/19/21 12:01 10/19/21 12:02 10/19/21 12:31 Pulse Rate 52 L 51 L 57 L Respiratory Rate 17 17 13 Blood Pressure 120/57 L 117/65 Pulse Oximetry 100 100 100 10/19/21 12:48 10/19
[2021-10-19 17:32] LABS: Hematocrit 24.6 % (37.0-47.0); Hemoglobin 7.5 g/dL (12.0-15.0)
--- NOTE | 2021-10-19 17:58 | WPDGICN ---
Assessment and Plan Assessment and plan (1) Anemia: Qualifiers: Anemia type: unspecified type Qualified Code(s): D64.9 - Anemia, unspecified Code(s): D64.9 - Anemia, unspecified Status: Acute Assessment and Plan: Patient admitted the hospital with anemia that appears relatively new since July of 2021. Found to have occult blood in stool but no obvious bleeding. She denies abdominal pain with no obvious prior history of GI issues. Plan is to monitor hemoglobin transfuse if necessary colonoscopy an EGD will be performed after preparation tomorrow morning. Further recommendations will be given after endoscopy. Would cautious with anticoagulation till source of anemia bleeding has been identified. (2) Occult blood in stools: Code(s): R19.5 - Other fecal abnormalities Status: Acute (3) Coronary artery disease: Code(s): I25.10 - Atherosclerotic heart disease of [place] coronary artery without angina pectoris Status: Acute GI Consult Note Consult date/time: 10/19/21 17:58 HPI: Cathie Joya is a 76 year old female I am asked to see because of anemia and occult blood in stool. Patient is very poor historian. Her history is significant that in July while at work apparently suffered a myocardial infarction. She presented [facility] and heart catheterization and stents were placed. Since that time she has been maintained on brilenta. Her hemoglobin was above 10 at that time. She did well until Monday evening when she went to the emergency room because of a left leg pain. In the emergency room she was identified as having a decline in her hemoglobin to approximately 8. Stool Hemoccult was found to be positive. There was no obvious blood in her stools however. Her stools appeared normal and brown. Patient denies any obvious bleeding. She was advised to be admitted to the hospital for further evaluation but refuse this she left the hospital AMA. Today she returned to the hospital and was admitted with a hemoglobin of 7.5. Patient continues to deny abdominal pain. She has no visible blood in her stools. She remains on Brilenta. she denies having had a colonoscopy in the past. [facility] Past Medical History Medical History (Updated 10/19/21 @ 18:01 by Zaid Polo MD) Coronary artery disease Diabetes mellitus Surgical History Surgical History (Updated 10/18/21 @ 13:10 by Vilma Hathaway MD) History of coronary artery stent placement Family History Family History Other Diabetes mellitus Social History Social History Smoking status: Never smoker Second hand tobacco smoke exposure: Yes Alcohol intake: former Substance use: never Substance use type: does not use Spiritual care concerns: No Meds Home Medications and Allergies Home Medications Medication Instructions Recorded Confirmed Type metformin 500 mg PO HS 07/27/21 10/19/21 History metoprolol tartrate 25 mg PO BID 07/27/21 10/19/21 History ticagrelor [Brilinta] 90 mg PO BID 07/27/21 10/19/21 History aspirin [Adult Aspirin] 81 mg PO DAILY 10/19/21 10/19/21 History pantoprazole [Protonix] 40 mg PO BID 10/19/21 10/19/21 History Allergies Allergy/AdvReac Type Severity Reaction Status Date / Time Sulfa (Sulfonamide Allergy Severe HIVES Verified 10/19/21 14:45 Antibiotics) ammonium chloride Allergy Unknown AMMONIA Verified 10/19/21 14:45 ALLERGY erythromycin base Allergy Unknown Unknown Verified 10/19/21 14:45 Penicillins Allergy Unknown Unknown Verified 10/19/21 14:45 codeine AdvReac Intermediate VOMITING Verified 10/19/21 14:45 STRAWBERRIES Allergy Severe HIVES Uncoded 10/19/21 14:45 Vital Signs Vital Signs - 24 hr 10/19/21 10:56 10/19/21 11:26 10/19/21 11:30 Pulse Rate 61 52 L 52 L Respiratory Rate 20 16 13 Blood Pressure 150/66 H
[2021-10-19] MEDS: PEG (High)/E-LYTE SOLN 4,000 ML BTL 4000 ML PO (19:54)
[2021-10-19] MEDS: PANTOPRAZOLE SODIUM IV 40 MG VIAL 80 MG IV PUSH (19:54)
[2021-10-19] MEDS: METOPROLOL TARTRATE 25 MG TABLET PO (20:16)
[2021-10-19 21:35] LABS: IFOB Positive Control Positive; Immunochemical Fecal Occult Bl Negative (N)
[2021-10-19 23:16] LABS: Hematocrit 26.8 % (37.0-47.0)
[2021-10-20] VITALS (12 sets, daily range): BP systolic 103–144; BP diastolic 54–81; PULSE 61–91; RESP 16–24; TEMP 35.6–36.5; O2SAT 98–100; BMI 22.0
[2021-10-20 06:19] LABS: Hematocrit 23.8 % (37.0-47.0); Hemoglobin 7.2 g/dL (12.0-15.0)
[2021-10-20 06:55] LABS: Alanine Aminotransferase 11 U/L (4-35); Albumin Level 3.6 g/dL (3.5-5.1); Alkaline Phosphatase 70 U/L (38-126); Anion Gap 8 mmol/L (8-16); Aspartate Amino Transferase 26 U/L (14-36); Bilirubin,Total 0.5 mg/dL (0.2-1.3); Blood Urea Nitrogen 15 mg/dL (7-17); Carbon Dioxide 23 mmol/L (22-30); Chloride 107 mmol/L (98-107); Estimated CRCL calculation 38 ml/min; Estimated Glomerular Filt Rate > 60; Glucose 113 mg/dL (65-110); Potassium 4.3 mmol/L (3.4-5.0); Sodium 138 mmol/L (137-145)
[2021-10-20 07:41] LABS: Glucose Point of Care 121 mg/dl (65-105)
--- NOTE | 2021-10-20 10:09 | PM.IMPN ---
Progress Note: A&P Assessment and Plan (1) GI bleed: Qualifiers: GI bleed type/associated pathology: unspecified gastrointestinal hemorrhage type Qualified Code(s): K92.2 - Gastrointestinal hemorrhage, unspecified Code(s): K92.2 - Gastrointestinal hemorrhage, unspecified Status: Acute Assessment and Plan: Patient was negative for Hemoccult in her stools last night Gastroenterology has been consult and appreciate further recommendations. Plan for an EGD and colonoscopy today Monitor serum electrolytes, CBC, hemoglobin/hematocrit q.6 hours. If hemoglobin drops below 7 transfuse packed red blood cells Monitor for bloody bowel movements,chest pain,SOB or dizziness/lightheadedness Pantoprazole continuous Diet: NPO DVT Px: SCDs Avoid anti-coagulations (2) Anemia: Qualifiers: Anemia type: unspecified type Qualified Code(s): D64.9 - Anemia, unspecified Code(s): D64.9 - Anemia, unspecified Status: Acute Assessment and Plan: Patient's hemoglobin and hematocrit have trended down As above (3) Coronary artery disease: Code(s): I25.10 - Atherosclerotic heart disease of [place] coronary artery without angina pectoris Status: Acute Assessment and Plan: Patient had denies any obvious chest discomfort, shortness of breath, or anginal equivalent. Patient's antiplatelets will be placed on hold at this time until after decision has been made on endoscopy. (4) Diabetes mellitus: Code(s): E11.9 - Type 2 diabetes mellitus without complications Status: Inactive Assessment and Plan: Metformin on hold Accu-Cheks q.6 hours Implement hypoglycemic protocol Subjective Date/time seen: 10/20/21 10:09 Patient is alert and oriented x4. Patient denies any hematochezia or melena. Patient reports that she has from home and does not have any concerns about returning home. She denies any recent falls. Mother reports that she is extremely weak and may need additional support at home. Will discuss this with case management. Patient is to have an EGD and the colonoscopy performed today. Metformin and Brilinta on hold. Review of Systems Review of Systems: All systems reviewed & are unremarkable except as noted in HPI and below Exam Narrative: Constitutional: Patient is well-nourished in no acute distress. Patient is alert and oriented x3 HEENT: Moist mucous membranes. No scleral icterus. No lymphadenopathy. Neck: No carotid bruits noted no JVD noted Lungs: Lung sounds are clear to auscultation bilaterally. No accessory muscle use. No rhonchi, rales, or wheezes noted. Cardiovascular: Apical pulse is regular rate and rhythm. S1-S2 noted, no S3 or S4 noted. No gallops, murmurs, or rubs noted. Abdomen: Soft, round, and nontender. No palpable masses. Extremities: No edema. Nontender. Skin: No rashes or lesions. Warm and dry. Skin is intact. Neurological: No focal neurological deficits. Cranial nerves II-XII grossly intact. Psychiatric: Cooperative, appropriate mood, and affect Objective Data Vital Signs Vital Signs: Vital Signs - 24 hr 10/19/21 10:56 10/19/21 11:26 10/19/21 11:30 Temperature Pulse Rate 61 52 L 52 L Respiratory Rate 20 16 13 Blood Pressure 150/66 H Pulse Oximetry 100 100 100 10/19/21 11:31 10/19/21 11:54 10/19/21 12:00 Temperature Pulse Rate 52 L 49 L 55 L Respiratory Rate 15 17 16 Blood Pressure 133/60 Pulse Oximetry 100 100 100 10/19/21 12:01 10/19/21 12:02 10/19/21 12:31 Temperature Pulse Rate 52 L 51 L 57 L Respiratory Rate 17 17 13 Blood Pressure 120/57 L 117/65 Pulse Oximetry 100 100 100 10/19/21 12:48 10/19/21 13:00 10/19/21 13:02 Temperature Pulse Rate 55 L 54 L 55 L Respiratory Rate 14 17 15 Blood Pressure 144/63 H Pulse Oximetry 100 100 100 10/19/21 13:15 10/19/21 13:16 10/19/21 13:17 Temperature Pulse Rate 54 L 52 L 52 L Respiratory Rate 15 15 15 Blood P
[2021-10-20 11:10] LABS: Hematocrit 24.4 % (37.0-47.0); Hemoglobin 7.5 g/dL (12.0-15.0)
[2021-10-20 11:14] LABS: Glucose Point of Care 132 mg/dl (65-105)
[2021-10-20] MEDS: LACTATED RINGERS 1,000 ML 150 ML IV CONT (11:18)
--- NOTE | 2021-10-20 11:41 | WPDANESEPPF ---
Anes - Initial Pre Proc Eval Procedure: Operation Date: 10/20/21 12:30 Proposed Procedures p Esophagogastroduodenoscopy & Colonoscopy - Zaid Polo MD Date/Time: 10/20/21 11:41 Surgeon: Chadd Daniels MD Pre Op Diagnosis: Anemia, GI bleed Patient Data Age: 76 Gender: F Height: 1.57 m Weight: 54.6 kg Last Vital Signs Temp 36.1 C L 10/20/21 11:16 Pulse 75 10/20/21 11:16 Resp 16 10/20/21 11:16 BP 138/56 L 10/20/21 11:16 Pulse Ox 100 10/20/21 11:16 Allergies Allergy/AdvReac Type Severity Reaction Status Date / Time strawberry Allergy Severe Hives Verified 10/20/21 11:13 Sulfa (Sulfonamide Allergy Severe HIVES Verified 10/20/21 11:13 Antibiotics) ammonium chloride Allergy Unknown AMMONIA Verified 10/20/21 11:13 ALLERGY erythromycin base Allergy Unknown Unknown Verified 10/20/21 11:13 Penicillins Allergy Unknown Unknown Verified 10/20/21 11:13 codeine AdvReac Intermediate VOMITING Verified 10/20/21 11:13 Home Medications Medication Instructions Recorded Confirmed Type metformin 500 mg PO HS 07/27/21 10/19/21 History metoprolol tartrate 25 mg PO BID 07/27/21 10/19/21 History ticagrelor [Brilinta] 90 mg PO BID 07/27/21 10/19/21 History aspirin [Adult Aspirin] 81 mg PO DAILY 10/19/21 10/19/21 History pantoprazole [Protonix] 40 mg PO BID 10/19/21 10/19/21 History Laboratory Tests 10/19/21 10/19/21 10/19/21 11:06 16:05 17:27 Hgb 7.5 g/dL L g/dL (12.0-15.0) Hct 24.6 % L % (37.0-47.0) Sodium Potassium Chloride Carbon Dioxide Anion Gap BUN Creatinine Estim Creat Clear Calc Estimated GFR Glucose POC Capillary Glucose 109 mg/dl H mg/dl (65-105) Calcium Total Bilirubin AST ALT Alkaline Phosphatase Total Protein Albumin Stl Occult Blood (IFOB) Blood Type B Positive Antibody Screen Negative 10/19/21 10/19/21 10/20/21 21:16 23:11 05:31 Hgb 8.0 g/dL L g/dL (12.0-15.0) Hct 26.8 % L % (37.0-47.0) Sodium 138 mmol/L mmol/L (137-145) Potassium 4.3 mmol/L mmol/L (3.4-5.0) Chloride 107 mmol/L mmol/L (98-107) Carbon Dioxide 23 mmol/L mmol/L (22-30) Anion Gap 8 mmol/L mmol/L (8-16) BUN 15 mg/dL D mg/dL (7-17) Creatinine 0.90 mg/dL mg/dL (0.7-1.0) Estim Creat Clear Calc 38 ml/min ml/min Estimated GFR > 60 (59 - ) Glucose 113 mg/dL H mg/dL (65-110) POC Capillary Glucose Calcium 8.0 mg/dL L mg/dL (8.4-10.2) Total Bilirubin 0.5 mg/dL mg/dL (0.2-1.3) AST 26 U/L U/L (14-36) ALT 11 U/L U/L (4-35) Alkaline Phosphatase 70 U/L U/L (38-126) Total Protein 6.0 g/dL L g/dL (6.3-8.2) Albumin 3.6 g/dL g/dL (3.5-5.1) Stl Occult Blood (IFOB) Negative (N) Blood Type Antibody Screen 10/20/21 10/20/21 10/20/21 05:31 07:32 10:53 Hgb 7.2 g/dL L g/dL 7.5 g/dL L g/dL (12.0-15.0) (12.0-15.0) Hct 23.8 % L % 24.4 % L % (37.0-47.0) (37.0-47.0) Sodium Potassium Chloride Carbon Dioxide Anion Gap BUN Creatinine Estim Creat Clear Calc Estimated GFR Glucose POC Capillary Glucose 121 mg/dl H mg/dl (65-105) Calcium Total Bilirubin AST ALT Alkaline Phosphatase Total Protein Albumin Stl Occult Blood (IFOB) Blood Type Antibody Screen 10/20/21 11:12 Hgb Hct Sodium
--- NOTE | 2021-10-20 11:48 | PC.NURSE ---
11 am, pt off floor for procedure.
[2021-10-20] MEDS: BENZOCAINE (*SP) 60 ML SPRAY CAN (HURRICAINE) 1 SPRAY MUCOUS MEM (12:34)
--- NOTE | 2021-10-20 12:37 | SUR.OPER ---
EGD: [id number] COLON: [id number]
--- NOTE | 2021-10-20 14:35 | PC.NURSE ---
1435 pt back in room via wheelchair.
[2021-10-20 16:28] LABS: Glucose Point of Care 88 mg/dl (65-105)
[2021-10-20] MEDS: METOPROLOL TARTRATE 25 MG TABLET PO (21:02)
[2021-10-21 05:45] VITALS: BP 132/65; PULSE 56; RESP 16; TEMP 36.4; O2SAT 98
[2021-10-21 06:48] LABS: Basophils Percent Auto 0.8 % (0.2-1.2); Eosinophils Absolute Auto 0.2 K/mm3 (0-0.3); Eosinophils Percent Auto 4.3 % (0-4.4); Hematocrit 24.2 % (37.0-47.0); Hemoglobin 7.4 g/dL (12.0-15.0); Immature Granulocyte Absolute 0.01 K/mm3 (0.00-0.031); Immature Granulocyte Percent A 0.2 % (0-0.5); Lymphocytes Absolute Auto 1.33 K/mm3 (0.9-3.2); Mean Corpuscular HGB Conc 30.6 g/dl (32-36); Mean Corpuscular Hemoglobin 28.7 pg (26-34); Mean Corpuscular Volume 93.8 fl (80-100); Mean Platelet Volume 9.7 fl (7.4-10.4); Monocytes Absolute Auto 0.6 K/mm3 (0.1-0.6); Monocytes Percent Auto 10.3 % (2.6-8.5); Neutrophils Absolute Auto 3.2 K/mm3 (1.3-6.7); Neutrophils Percent Auto 59.4 % (45.5-73.1); Platelet Count Result 208 k/mm3 (150-375); Red Blood Count 2.58 M/mm3 (4.2-5.4); Red Cell Distribution Width 12.7 % (11.5-14.5); White Blood Count 5.3 K/mm3 (4.5-10.0)
[2021-10-21 06:58] LABS: Iron 17 ug/dL (37-170)
[2021-10-21 07:05] LABS: Alanine Aminotransferase 10 U/L (4-35); Albumin Level 3.8 g/dL (3.5-5.1); Alkaline Phosphatase 83 U/L (38-126); Anion Gap 5 mmol/L (8-16); Aspartate Amino Transferase 22 U/L (14-36); Bilirubin,Total 0.3 mg/dL (0.2-1.3); Blood Urea Nitrogen 10 mg/dL (7-17); Calcium 8.8 mg/dL (8.4-10.2); Carbon Dioxide 26 mmol/L (22-30); Chloride 109 mmol/L (98-107); Estimated CRCL calculation 32 ml/min; Estimated Glomerular Filt Rate 49; Glucose 114 mg/dL (65-110); Potassium 4.1 mmol/L (3.4-5.0); Sodium 140 mmol/L (137-145)
[2021-10-21 07:07] LABS: Percent Iron Saturation 5 % (20-50)
[2021-10-21 07:30] LABS: Glucose Point of Care 124 mg/dl (65-105)
[2021-10-21 08:56] VITALS: PULSE 60
[2021-10-21] MEDS: POLYSACCHARIDE IRON COMPLEX 150 MG CAPSULE PO (08:56)
[2021-10-21] MEDS: METOPROLOL TARTRATE 25 MG TABLET PO (08:56)
--- NOTE | 2021-10-21 09:48 | WPDGIPROGNO ---
Progress Note: A&P Assessment and Plan (1) Anemia: Qualifiers: Anemia type: unspecified type Qualified Code(s): D64.9 - Anemia, unspecified Code(s): D64.9 - Anemia, unspecified Status: Acute Assessment and Plan: Anemia stable at this time with no signs of active blood loss. GI series including colonoscopy, EGD and small-bowel follow-through unremarkable. Suggest following CBC after discharge if anemia persists then hematology consult would be indicated (2) Occult blood in stools: Code(s): R19.5 - Other fecal abnormalities Status: Acute Assessment and Plan: occult blood identified in stools. GI workup reveals only internal hemorrhoids which could potentially contribute to this. Would suggest monitoring as an outpatient at this stage. Okay with GI service for discharge. (3) Coronary artery disease: Code(s): I25.10 - Atherosclerotic heart disease of [place] coronary artery without angina pectoris Status: Acute Subjective Date/time seen: 10/21/21 09:48 Patient alert comfortable this morning. No bleeding reported. She denies abdominal pain. Tolerating diet without incident. Small-bowel follow-through performed yesterday was unremarkable. Review of Systems Review of Systems: All systems reviewed & are unremarkable except as noted in HPI and below Exam Narrative: Physical exam reveals patient to be alert. Vital signs stable. HEENT exam reveals no icterus. Lungs are clear. Heart without murmur. Abdomen bowel sounds present soft nontender with no organomegaly. Objective Data Vital Signs Vital Signs: Vital Signs - 24 hr 10/20/21 11:16 10/20/21 13:02 10/20/21 13:12 Temperature 97 F L Pulse Rate 75 63 80 Respiratory Rate 16 19 24 H Blood Pressure 138/56 L 103/54 L 109/55 L Pulse Oximetry 100 98 99 10/20/21 13:22 10/20/21 16:31 10/20/21 16:32 Temperature 97.1 F L 97.0 F L Pulse Rate 70 70 70 Respiratory Rate 18 20 18 Blood Pressure 125/61 131/67 125/71 Pulse Oximetry 100 100 100 10/20/21 16:33 10/20/21 20:50 10/20/21 21:02 Temperature 97.1 F L Pulse Rate 70 91 Respiratory Rate 20 Blood Pressure 131/67 Pulse Oximetry 100 99 10/20/21 22:00 10/21/21 05:45 10/21/21 08:56 Temperature 97.7 F 97.5 F L Pulse Rate 76 56 L 60 Respiratory Rate 18 16 Blood Pressure 126/81 132/65 Pulse Oximetry 98 98 Intake/Output Intake/Output: Intake & Output 10/18/21 10/19/21 10/20/21 10/21/21 23:59 23:59 23:59 23:59 Intake Total 0 5656 890 Balance 0 5656 890 Meds/Results Medications: Active Medications Generic Name Dose Route Start Last Admin Trade Name Freq PRN Reason Stop Dose Admin Dextrose 12.5 gm 10/20/21 10:16 Dextrose 50% 25 Gm/50 Ml Syringe IV PUSH PRN PRN Hypoglycemia Protocol Glucagon 1 mg 10/20/21 10:16 Glucagon For Inj 1 Mg Vial IM PRN PRN Hypoglycemia Protocol Glucose 15 gm 10/20/21 10:16 Glucose Oral Gel 15 Gm Of Glucse In 37.5 Gm Tube PO PRN PRN Hypoglycemia Protocol Pantoprazole Sodium 80 mg/ 500 mls @ 50 mls/hr 10/19/21 18:05 10/21/21 08:52 Dextrose IV CONT Infused .Q10H INNA Infusion Dextrose 1,000 mls @ 100 mls/hr 10/20/21 10:16 Dextrose 5% 1,000 Ml IVPB PRN PRN Hypoglycemia Protocol Metoprolol Tartrate 25 mg 10/19/21 21:00 10/21/21 08:56 Metoprolol Tartrate 25 Mg Tablet PO 25 mg Q12HR INNA Administration Ondansetron HCl 4 mg 10/19/21 17:59 Ondansetron Inj 4 Mg/2 Ml Vial IV PUSH Q6H PRN Nausea And Vomiting Polysaccharide Iron Complex 150 mg 10/21/21 08:00 10/21/21 08:56 Polysaccharide Iron Complex 150 Mg Capsule PO 150 mg DAILY@0800 INNA Administration Radiology Results: ITS Impressions Upper GI and Small Bowel X-Ray 10/20/21 15:18 IMPRESSION: 1. Normal small bowel series. Labs Labs: Laboratory Results - last 24 hr 10/20/21 10/20/21
--- NOTE | 2021-10-21 09:54 | PM.DS ---
DS: Admitting Diagnosis Discharge Date 10/21/2021 Admitting Diagnosis GI bleed Acute anemia Diabetes mellitus CAD DS: Discharge Diagnosis Discharge Diagnosis (1) GI bleed: Qualifiers: GI bleed type/associated pathology: unspecified gastrointestinal hemorrhage type Qualified Code(s): K92.2 - Gastrointestinal hemorrhage, unspecified Code(s): K92.2 - Gastrointestinal hemorrhage, unspecified Status: Acute Assessment and Plan: Patient was negative for Hemoccult in her stools last night Gastroenterology has been consult and appreciate further recommendations. Plan for an EGD and colonoscopy today Monitor serum electrolytes, CBC, hemoglobin/hematocrit q.6 hours. If hemoglobin drops below 7 transfuse packed red blood cells Monitor for bloody bowel movements,chest pain,SOB or dizziness/lightheadedness Pantoprazole continuous Diet: NPO DVT Px: SCDs Avoid anti-coagulations (2) Anemia: Qualifiers: Anemia type: unspecified type Qualified Code(s): D64.9 - Anemia, unspecified Code(s): D64.9 - Anemia, unspecified Status: Acute Assessment and Plan: Patient's hemoglobin and hematocrit have trended down As above (3) Coronary artery disease: Code(s): I25.10 - Atherosclerotic heart disease of [place] coronary artery without angina pectoris Status: Acute Assessment and Plan: Patient had denies any obvious chest discomfort, shortness of breath, or anginal equivalent. Patient's antiplatelets will be placed on hold at this time until after decision has been made on endoscopy. (4) Diabetes mellitus: Code(s): E11.9 - Type 2 diabetes mellitus without complications Status: Inactive Assessment and Plan: Metformin on hold Accu-Cheks q.6 hours Implement hypoglycemic protocol DS: Summary Hospital Course Reason for hospitalization: Acute anemia Hospital Course: Patient is a 76-year-old female with a past medical history of CAD status post stent placement, dyslipidemia, diabetes mellitus, peptic ulcer disease and asthma. She presented to the emergency department due to anemia. Patient states that she was in the emergency department prior to this hospitalization due to not feeling well and having an odd sensation in her chest. At that time labs were performed and the patient was noted to be anemic compared to her [facility]. The patient was advised to stay for admission however at that point the patient refused admission and left AMA. Patient returned to the emergency department after she was able to get some affairs in order to follow-up on her low blood count and for further evaluation. During this hospitalization the patient denied any melena or hematochezia. She denied any hemoptysis. Patient also denies any abdominal pain, nausea, vomiting, constipation or diarrhea. She reports that she feels fine, however she is drowsy and unable to perform task that she was previously able to. She finds it difficult to understand information and to discuss her health care. Patient is a very poor historian. Patient also reports that she has had a stent placed at [facility] during a heart catheterization in June of 2021. Patient reports medical compliance. While in the emergency department labs and imaging were obtained again which were significant for a hemoglobin of 7.8, hematocrit 25.9, WBC 7.7 a platelet of 253. Sodium 136, potassium 4.7, BUN 22 and creatinine of 1.0. Normal LFTs. Hemoccult was obtained and negative in the emergency department. However the patient was empirically started on a Protonix drip until Gastroenterology was consulted for possible EGD and colonoscopy. The patient did have EGD and colonoscopy performed on 10/20/2021. See operative note. No acute interventions performed. Discussed with the patient about following up with her primary care physician and possible referral to Hematology. Weekly labs x2 weeks. Patient did not
== END 2021-10-21 10:00 | disposition home or self-care (01) | DRG 379 ==
LOC: ANHED 13:38 → ANH3MEDSUR 13:58
PROVIDERS: Emergency Medicine; Internal Medicine Gastroenterology; Nurse Practitioner Adult Health; Admitting Provider Family Medicine; Emergency Provider Emergency Medicine; PCP Family Medicine; Visit Provider Nurse Practitioner Family
PROC: 0DJ08ZZ Inspection of Upper Intestinal Tract, Via Natural or Artificial Opening Endoscopic (ICD-10-PCS; CPT 43235; principal; 2021-10-20 12:30)
DX: K92.2 Gastrointestinal hemorrhage, unspecified (principal); K64.8 Other hemorrhoids; D64.9 Anemia, unspecified; I25.10 Atherosclerotic heart disease of native coronary artery without angina pectoris; E78.5 Hyperlipidemia, unspecified; E11.9 Type 2 diabetes mellitus without complications; J45.909 Unspecified asthma, uncomplicated; I25.2 Old myocardial infarction; Z95.5 Presence of coronary angioplasty implant and graft; Z79.84 Long term (current) use of oral hypoglycemic drugs; Z28.21 Immunization not carried out because of patient refusal; Z79.82 Long term (current) use of aspirin; Z88.0 Allergy status to penicillin; Z96.651 Presence of right artificial knee joint; Z79.02 Long term (current) use of antithrombotics/antiplatelets; Z87.11 Personal history of peptic ulcer disease
CPT/HCPCS: 36415; 74250; 80053; 82274; 82607; 82948; 83540; 83550; 83735; 85014; 85018; 85025; 85610; 85730; 86850; 86900; 86901; 93971; 96374; 99284; 99285; A9270; C9113; G0378; J2704; J7060; J7120

== ENCOUNTER 2021-11-04 09:30 | Outpatient (RCR) | payer OTHER, SELFPAY ==
[2021-10-28 11:40] LABS: Basophils Absolute Auto 0.1 K/mm3 (0.0-0.1); Basophils Percent Auto 0.7 % (0.2-1.2); Eosinophils Absolute Auto 0.3 K/mm3 (0-0.3); Eosinophils Percent Auto 4.5 % (0-4.4); Hemoglobin 7.3 g/dL (12.0-15.0); Immature Granulocyte Absolute 0.03 K/mm3 (0.00-0.031); Immature Granulocyte Percent A 0.4 % (0-0.5); Lymphocytes Absolute Auto 1.51 K/mm3 (0.9-3.2); Lymphocytes Percent Auto 20.4 % (18.3-44.2); Mean Corpuscular HGB Conc 29.2 g/dl (32-36); Mean Corpuscular Hemoglobin 27.4 pg (26-34); Mean Platelet Volume 9.8 fl (7.4-10.4); Monocytes Absolute Auto 0.7 K/mm3 (0.1-0.6); Monocytes Percent Auto 9.5 % (2.6-8.5); Neutrophils Absolute Auto 4.8 K/mm3 (1.3-6.7); Neutrophils Percent Auto 64.5 % (45.5-73.1); Platelet Count Result 204 k/mm3 (150-375); Red Blood Count 2.66 M/mm3 (4.2-5.4); Red Cell Distribution Width 13.2 % (11.5-14.5); White Blood Count 7.4 K/mm3 (4.5-10.0)
[2021-11-04 09:57] LABS: Basophils Absolute Auto 0.1 K/mm3 (0.0-0.1); Basophils Percent Auto 0.7 % (0.2-1.2); Eosinophils Absolute Auto 0.4 K/mm3 (0-0.3); Eosinophils Percent Auto 6.1 % (0-4.4); Immature Granulocyte Absolute 0.02 K/mm3 (0.00-0.031); Immature Granulocyte Percent A 0.3 % (0-0.5); Lymphocytes Absolute Auto 0.86 K/mm3 (0.9-3.2); Lymphocytes Percent Auto 12.9 % (18.3-44.2); Mean Corpuscular HGB Conc 29.2 g/dl (32-36); Mean Corpuscular Hemoglobin 27.5 pg (26-34); Mean Corpuscular Volume 94.1 fl (80-100); Mean Platelet Volume 9.3 fl (7.4-10.4); Monocytes Absolute Auto 0.6 K/mm3 (0.1-0.6); Monocytes Percent Auto 9.3 % (2.6-8.5); Neutrophils Absolute Auto 4.7 K/mm3 (1.3-6.7); Neutrophils Percent Auto 70.7 % (45.5-73.1); Platelet Count Result 213 k/mm3 (150-375); Red Blood Count 2.55 M/mm3 (4.2-5.4); Red Cell Distribution Width 13.3 % (11.5-14.5); White Blood Count 6.7 K/mm3 (4.5-10.0)
== END 2022-01-26 23:59 | disposition home or self-care (01) ==
LOC: ANHLAB 09:30
PROVIDERS: PCP Family Medicine; Visit Provider Nurse Practitioner Family
DX: D64.9 Anemia, unspecified (principal)
CPT/HCPCS: 36415; 85025

== ENCOUNTER 2022-11-06 08:19 | Outpatient (CLI) | payer OTHER, SELFPAY ==
--- NOTE | ~2022-11-06 | MR_ITS ---
EXAMINATION: MR brain/brain stem wo con DATE: 11/06/2022 09:17 INDICATION: Memory loss. TECHNIQUE: Magnetic resonance imaging (MRI) of the brain and brainstem was performed without intraven ous contrast. COMPARISON: None. FINDINGS: There is an old infarct in right temporal parietal region. There is an old infarct in left parietal occipital region. There are scattered areas of nonspecific increased T2-weighted signal inte nsity in the cerebral white matter. There are old infarcts in the bilateral cerebellum. There is no i ntracranial hemorrhage, acute infarction, or abnormal intracranial mass lesion. There is no intracran ial hemorrhage, acute infarction, or abnormal intracranial mass lesion. The ventricles are normal in size. The orbits are normal. There is mild mucosal thickening in the ethmoid sinuses. The mastoid air cells are normal. IMPRESSION: 1. Old infarcts involving the cerebellum, right temporal occipital region, and left parietal occipita l region. 2. Mild nonspecific cerebral white matter disease, which likely represents chronic small vessel ische dorothy disease. Reviewed, dictated and finalized at location A. IMPRESSION: 1. Old infarcts involving the cerebellum, right temporal occipital region, and left parietal occipital region. 2. Mild nonspecific cerebral white matter disease, which likely represents health record technician laury small vessel ischemic disease.
== END 2022-11-06 08:20 | disposition home or self-care (01) ==
PROVIDERS: PCP Family Medicine; Visit Provider Family Medicine
DX: R41.3 Other amnesia (principal); R90.82 White matter disease, unspecified
CPT/HCPCS: 70551

== ENCOUNTER 2023-04-04 18:14 | Inpatient (IN) | payer OTHER, SELFPAY ==
[2023-04-04] VITALS (15 sets, daily range): BP systolic 110–203; BP diastolic 65–129; PULSE 66–86; RESP 15–35; TEMP 36.4–37.3; O2SAT 93–99; BMI 23.6
--- NOTE | ~2023-04-04 | CT_ITS ---
EXAMINATION: CT cervical spine wo con DATE: 04/04/2023 18:48 INDICATION: fall, dementia unknwon HI TECHNIQUE: Computed tomography (CT) of the cervical spine was performed without intravenous contrast. Automated exposure control and iterative reconstruction technique were employed. The dose-length pro duct was 221.57 mGy-cm. COMPARISON: None. FINDINGS: Vertebral Body Alignment: Intact. Reversed cervical lordosis, centered at C3-4. Multilevel grade 1 li stheses, presumably on a degenerative basis Craniocervical and atlantoaxial alignment: Moderate degenerative change. Alignment intact. Osseous structures/fracture: No evidence of a lytic or blastic process in the visualized spine. No e vidence of acute fracture. Cervical soft tissues: The paraspinal soft tissues planes are maintained. Degenerative changes: Multilevel severe degenerative disc disease and facet arthropathy. Multilevel s evere bilateral neural foraminal narrowing. Severe central canal narrowing at C5-6. IMPRESSION: No acute fracture or traumatic malalignment in the cervical spine. Reviewed, dictated and finalized at location K.
--- NOTE | ~2023-04-04 | XR_ITS ---
EXAMINATION: XR surgery orthopedic DATE: 04/07/2023 10:54 INDICATION: Intraoperative evaluation during right hip hemiarthroplasty. TECHNIQUE: Frontal view of the right hip was obtained. COMPARISON: None. FINDINGS: Intraoperative image during placement of a bipolar type right hip hemiarthroplasty demonstrate the bi polar type hemiarthroplasty placed in near anatomic alignment on the single image provided. Portions of the pelvis are obscured by a bolster. No fractures in the visualized bones likely lap sponge at t he surgical wound overlying the right greater trochanter. IMPRESSION: 1. Expected appearance during placement of a bipolar type right hip hemiarthroplasty. Reviewed, dictated and finalized at location A. IMPRESSION: 1. Expected appearance during placement of a bipolar type right hip hemiarthrop lasty.
--- NOTE | ~2023-04-04 | XR_ITS ---
EXAM: XR hip RT 2V w AP pelvis DATE: 04/04/2023 18:52 HISTORY: glf, R hip pain, ext rotation . COMPARISON: None available. FINDINGS: Normal mineralization. Transverse fracture through the right femoral neck with one half sh aft width lateral displacement and medial angulation. No lytic or blastic lesion. Moderate lumbar deg enerative disc disease. Mild degenerative changes in the bilateral SI joints, left hip, and pubic sym physis. No erosion or periosteal change. Soft tissues within normal limits. IMPRESSION: Mildly displaced and angulated right femoral neck fracture. Reviewed, dictated and finalized at location K.
--- NOTE | ~2023-04-04 | XR_ITS ---
EXAMINATION: XR chest 1V portable Exam Date/Time: 04/04/2023 19:25 CDT HISTORY: R hip fx, preop Comparison: 07/27/2021. RESULT: Lines, tubes, and devices: Coronary artery stents. Lungs and pleura: Clear. Cardiomediastinal silhouette: Stable. Other: No acute osseous or upper abdominal finding. IMPRESSION: No acute cardiopulmonary process. Reviewed, dictated and finalized at location K.
--- NOTE | ~2023-04-04 | CT_ITS ---
EXAMINATION: CT brain wo con DATE: 04/04/2023 18:38 INDICATION: fall, dementia, unknown hi . TECHNIQUE: Computed tomography (CT) of the head was performed without intravenous contrast. The mA wa s adjusted according to patient size. Iterative reconstruction technique was employed. The dose-lengt h product was 605.33 mGy-cm. COMPARISON: MRI brain 11/06/2022. FINDINGS: No acute intracranial hemorrhage or extra-axial fluid collection. No hydrocephalus, mass, or herniation. No acute ischemic infarct. Unremarkable dural venous sinus attenuation. No acute osseous abnormality. The aerated spaces are clear. Moderate atrophy and chronic white matter change. Atherosclerotic intracranial calcification. Old foc al bilateral cerebellar infarcts. Left medial occipital encephalomalacia. Right inferior occipital lo be encephalomalacia. IMPRESSION: No acute intracranial process. Reviewed, dictated and finalized at location K.
--- NOTE | 2023-04-04 18:21 | ED.FALL ---
HPI - Fall General Chief Complaint: Fall <JALEEL Durbin Last Filed: 04/05/23 03:17> Stated Complaint: fall <JALEEL Durbin Last Filed: 04/05/23 03:17> Source: patient, EMS and old records reviewed <JALEEL Durbin Last Filed: 04/05/23 03:17> Mode of arrival: EMS <JALEEL Durbin Last Filed: 04/05/23 03:17> Limitations: dementia <JALEEL Durbin Last Filed: 04/05/23 03:17> History of Present Illness HPI Narrative: Patient is a 78-year-old female presents to the ED via EMS with report of a ground-level fall. Patient has a history of dementia and is alert and oriented x1 at baseline. Per EMS report, they were called out due to patient having fallen. She was found on the ground near her stairs. It did not appear that she had fallen down her stairs. Patient complaining of right hip pain and brought here for further evaluation, unable to ambulate. It is unknown if she hit her head or lost consciousness. Patient is not able to tell me how the fall occurred. She denies any other areas of pain. Denies chest pain, difficulty breathing, abdominal pain, dizziness, lightheadedness, vision changes. Patient is on aspirin and plavix. Patient was given 25 mcg of fentanyl in route by EMS. <JALEEL Durbin Last Filed: 04/05/23 03:17> Related Data Home Medications: Home Medications Medication Instructions Recorded Confirmed metformin 500 mg tablet 500 mg PO HS 07/27/21 04/04/23 metoprolol tartrate 25 mg tablet 25 mg PO BID 07/27/21 04/04/23 aspirin 81 mg chewable tablet 81 mg PO DAILY 10/19/21 04/04/23 albuterol sulfate 90 mcg inhalation Q4H PRN asthma 04/04/23 04/04/23 clopidogrel 75 mg PO DAILY 04/04/23 04/04/23 ferrous sulfate 325 mg PO DAILY 04/04/23 04/04/23 levothyroxine 50 mcg PO DAILY 04/04/23 04/04/23 memantine 5 mg PO BID 04/04/23 04/04/23 <Kimber Reveles PA-C - Last Filed: 04/05/23 03:17> Allergies/Adverse Reactions: Allergies Allergy/AdvReac Type Severity Reaction Status Date / Time strawberry Allergy Severe Hives Verified 04/04/23 22:55 Sulfa (Sulfonamide Allergy Severe HIVES Verified 04/04/23 22:55 Antibiotics) ammonium chloride Allergy Unknown AMMONIA Verified 04/04/23 22:55 ALLERGY erythromycin base Allergy Unknown Unknown Verified 04/04/23 22:55 Penicillins Allergy Unknown Unknown Verified 04/04/23 22:55 codeine AdvReac Intermediate VOMITING Verified 04/04/23 22:55 <JALEEL Durbin Last Filed: 04/05/23 03:17> Review of Systems Review of Systems: CONSTITUTIONAL: Denies fever, chills, or sweats. EYES: Denies visual changes. CARDIOVASCULAR: Denies chest pain. RESPIRATORY: Denies dyspnea. GASTROINTESTINAL: Denies abdominal pain, nausea, vomiting. MUSCULOSKELETAL: See HPI. NEUROLOGIC: See HPI. <JALEEL Durbin Last Filed: 04/05/23 03:17> All systems reviewed & are unremarkable except as noted in HPI and below <Kimber Reveles PA-C - Last Filed: 04/05/23 03:17> PMFSH Past Medical History Medical History: Medical History Asthma Coronary artery disease Diabetes mellitus Dyslipidemia Peptic ulcer disease <Kimber Reveles PA-C - Last Filed: 04/05/23 03:17> Surgical History Surgical History: Surgical History History of coronary artery stent placement History of total knee replacement Right knee History of tubal ligation <JALEEL Durbin Last Filed: 04/05/23 03:17> Family History Family History: Family History Other Diabetes mellitus <Kimber Reveles PA-C - Last Filed: 04/05/23 03:17> Social History Social History: Social History Smoking status: Never smoker
--- NOTE | 2023-04-04 19:03 | ECG_ITS ---
Measurements Intervals [place] Rate: 71 P: 8 [place]: 152 QRS: -1 QRSD: 75 T: -14 QT: 380 QTc: 413 Interpretive Statements SINUS RHYTHM NONSPECIFIC T-WAVE ABNORMALITY ABNORMAL ECG COMPARED TO ECG 07/28/2021 05:26:14 SINUS RHYTHM NOW PRESENT Electronically Signed On 04-05-2023 9:16:21 CDT by Joao Nuñez M.D.
[2023-04-04 19:41] LABS: Alanine Aminotransferase 18 U/L (6-35); Albumin Level 4.2 g/dL (3.5-5.1); Alkaline Phosphatase 100 U/L (38-126); Anion Gap 9 mmol/L (8-16); Aspartate Amino Transferase 31 U/L (14-36); Bilirubin,Total 0.5 mg/dL (0.2-1.3); Blood Urea Nitrogen 21 mg/dL (7-17); Carbon Dioxide 25 mmol/L (22-30); Chloride 105 mmol/L (98-107); Estimated Glomerular Filt Rate 54; Glucose 242 mg/dL (65-110); Potassium 4.3 mmol/L (3.4-5.0); Sodium 139 mmol/L (137-145)
[2023-04-04 19:50] LABS: Basophils Absolute Auto 0.1 K/mm3 (0.0-0.1); Basophils Percent Auto 0.3 % (0.2-1.2); Eosinophils Absolute Auto 0.1 K/mm3 (0-0.3); Eosinophils Percent Auto 0.4 % (0-4.4); Hematocrit 36.5 % (37.0-47.0); Hemoglobin 11.9 g/dL (12.0-15.0); Immature Granulocyte Absolute 0.11 K/mm3 (0.00-0.031); Immature Granulocyte Percent A 0.7 % (0-0.5); Immature Platelet Fraction Pct 2.4 % (0.9-11.2); Lymphocytes Absolute Auto 0.81 K/mm3 (0.9-3.2); Lymphocytes Percent Auto 5.1 % (18.3-44.2); Mean Corpuscular HGB Conc 32.6 g/dl (32-36); Mean Corpuscular Volume 98.1 fl (80-100); Monocytes Absolute Auto 0.6 K/mm3 (0.1-0.6); Monocytes Percent Auto 4.1 % (2.6-8.5); Neutrophils Absolute Auto 14.1 K/mm3 (1.3-6.7); Neutrophils Percent Auto 89.4 % (45.5-73.1); Platelet Count Result 163 k/mm3 (150-375); Red Blood Count 3.72 M/mm3 (4.2-5.4); Red Cell Distribution Width 12.8 % (11.5-14.5); White Blood Count 15.8 K/mm3 (4.5-10.0)
--- NOTE | 2023-04-04 19:53 | PC.NURSE ---
This RN assumed care of patient. This RN took patient report from CAMELIA Sorto.
[2023-04-04] MEDS: ONDANSETRON INJ 4 MG/2 ML VIAL IV PUSH (20:22)
[2023-04-04] MEDS: fentaNYL CITRATE INJ (*CRX) 100 MCG/2 ML VIAL 25 MCG IV PUSH ×2 (20:30→23:46)
[2023-04-04 20:54] LABS: Appearance Urine Clear (Clear); Bilirubin Urine Negative (Negative); Blood Urine Negative (Negative); Color Urine Yellow (Yellow); Glucose Urine UA 1+ mg/dL (Negative); Ketones Urine Negative (Negative); Leukocyte Esterase Ur Negative LEU/UL (Negative); Nitrate Urine Negative (Negative); Protein Urine Negative (Negative); Specific Grav Ur 1.019 (1.001-1.035)
[2023-04-04 20:57] LABS: Add Urine Microscopic? NO
[2023-04-04] MEDS: ACETAMINOPHEN 325 MG TABLET 650 MG PO (22:11)
--- NOTE | 2023-04-04 22:21 | ADMGEN ---
This patient, Cathie Joya, was admitted to Medical Room 255-01. Patient/family oriented to hospital policies and general routines including ID bracelet, bed and alarms, visiting hours, pain management, procedures, bathroom and other care routines, personal items, smoking policy, room service/diet, and visiting hours. Information on how to activate the Rapid Response Team has been discussed. Patient/Family are encouraged to report perceived risks to care and to ask questions if they do not understand what they are told or what they should do.
--- NOTE | 2023-04-04 23:13 | PM.IMHP ---
H&P: HPI History of Present Illness Date/Time: 04/04/23 23:13 Chief Complaint: Patient fell down at home and had excruciating right hip pain Narrative: Very pleasant lady with baseline dementia was in her usual state of health at home when she had a ground level fall. She did not fall from any stairs. She complained of excruciating pain in the right hip and was brought to the ER for evaluation. Workup done which confirmed right hip fracture. On-call orthopedics was consulted who advised to admit her to the medical floor, keep her NPO after midnight and they will take her to the OR in a.m. for right hip surgery. Review of Systems Review of Systems: All systems reviewed & are unremarkable except as noted in HPI and below PMFSH Past Medical History Medical History Asthma Coronary artery disease Diabetes mellitus Dyslipidemia Peptic ulcer disease Surgical History Surgical History History of coronary artery stent placement History of total knee replacement Right knee History of tubal ligation Family History Family History Other Diabetes mellitus Social History Social History Smoking status: Never smoker Second hand tobacco smoke exposure: Yes Alcohol intake: former Substance use: never Substance use type: does not use Lack of Transportation: No Lack of Food: Never True Current Housing: I Have Housing Concerned About Future Housing: No Difficulty Paying Gas/Electric Bills: No Difficulty Paying for Meds: No Currently Unemployed: No Education: High School Diploma/GED Difficulty w/ Childcare or Family Care: No Spiritual care concerns: No Meds Home Medications and Allergies Home Medications Medication Instructions Recorded Confirmed Type metformin 500 mg tablet 500 mg PO HS 07/27/21 04/04/23 History metoprolol tartrate 25 mg tablet 25 mg PO BID 07/27/21 04/04/23 History aspirin 81 mg chewable tablet 81 mg PO DAILY 10/19/21 04/04/23 History albuterol sulfate 90 mcg inhalation Q4H PRN asthma 04/04/23 04/04/23 History clopidogrel 75 mg PO DAILY 04/04/23 04/04/23 History ferrous sulfate 325 mg PO DAILY 04/04/23 04/04/23 History levothyroxine 50 mcg PO DAILY 04/04/23 04/04/23 History memantine 5 mg PO BID 04/04/23 04/04/23 History Allergies Allergy/AdvReac Type Severity Reaction Status Date / Time strawberry Allergy Severe Hives Verified 04/04/23 22:55 Sulfa (Sulfonamide Allergy Severe HIVES Verified 04/04/23 22:55 Antibiotics) ammonium chloride Allergy Unknown AMMONIA Verified 04/04/23 22:55 ALLERGY erythromycin base Allergy Unknown Unknown Verified 04/04/23 22:55 Penicillins Allergy Unknown Unknown Verified 04/04/23 22:55 codeine AdvReac Intermediate VOMITING Verified 04/04/23 22:55 Vital Signs Vital Signs - 24 hr 04/04/23 18:16 04/04/23 20:34 04/04/23 20:40 Temperature 37.3 C Pulse Rate 81 78 82 Respiratory Rate 18 19 20 Blood Pressure 203/88 H 135/121 H Pulse Oximetry 94 Oxygen Delivery Room Air 04/04/23 20:43 04/04/23 20:45 04/04/23 20:47 Temperature Pulse Rate 83 78 85 Respiratory Rate 35 H 21 H 17 Blood Pressure 142/129 H 143/115 H Pulse Oximetry 99 Oxygen Delivery 04/04/23 21:00 04/04/23 21:02 04/04/23 21:15 Temperature Pulse Rate 78 78 75 Respiratory Rate 22 H 17 17 Blood Pressure 169/79 H Pulse Oximetry 95 97 95 Oxygen Delivery 04/04/23 21:17 04/04/23 21:30 04/04/23 21:31 Temperature Pulse Rate 74 74 76 Respiratory Rate 16 15 21 H Blood Pressure 164/72 H 151/106 H Pulse Oximetry 98 94 Oxygen Delivery 04/04/23 22:00 04/04/23 22:02 04/04/23 22:46 Temperature Pulse Rate 78 86 Respiratory Rate 15 29 H Blood Pressure 144/65 H Pulse Oximetry 93 97 Oxygen Delivery Room Air 04/04
[2023-04-04] MEDS: SODIUM CHLORIDE 0.9% IV 1,000 ML 100 ML IV CONT (23:17)
[2023-04-04 23:33] LABS: INR 1.1; Partial Thromboplastin Time 26.6 SECONDS (22.3-36.8); Prothrombin Time 14.5 Seconds (11.1-14.7)
[2023-04-05] MEDS: fentaNYL CITRATE INJ (*CRX) 100 MCG/2 ML VIAL 25 MCG IV PUSH ×5 (00:58→17:27)
[2023-04-05] MEDS: LORazepam INJ (*CRX) 2 MG/ML VIAL 0.5 MG IV PUSH (01:40)
[2023-04-05 04:00] VITALS: BP 154/74; PULSE 79; RESP 18; TEMP 37.5; O2SAT 95
--- NOTE | 2023-04-05 04:47 | PC.NURSE ---
On 04/04/23-04/05/23 the license pending RN, Kyler Rutledge, provided care and [facility]. I have reviewed the RN's documentation and agree with the findings.
[2023-04-05] MEDS: LEVOTHYROXINE SODIUM 50 MCG TABLET PO (05:05)
[2023-04-05 05:11] LABS: Glucose Point of Care 152 mg/dl (65-105)
[2023-04-05 06:21] LABS: Troponin I 0.028 ng/mL (0.000-0.034)
[2023-04-05 06:49] LABS: Hemoglobin A1C 6.3 % (<5.7)
[2023-04-05] MEDS: SODIUM CHLORIDE 0.9% IV 1,000 ML 100 ML IV CONT ×2 (08:21→16:41)
[2023-04-05 08:23] VITALS: PULSE 75
[2023-04-05] MEDS: FERROUS SULFATE 325 MG TABLET DR BY MOUTH (08:23)
[2023-04-05] MEDS: METOPROLOL TARTRATE 25 MG TABLET PO ×2 (08:23→21:22)
[2023-04-05] MEDS: MEMANTINE 5 MG TABLET PO ×2 (08:24→16:41)
[2023-04-05 08:38] LABS: Glucose Point of Care 152 mg/dl (65-105)
--- NOTE | 2023-04-05 11:20 | PM.IMPN ---
Progress Note: A&P Assessment and Plan (1) Fracture of femoral neck: Qualifiers: Encounter type: initial encounter Fracture type: closed Laterality: right Qualified Code(s): S72.001A - Fracture of unspecified part of neck of right femur, initial encounter for closed fracture Code(s): S72.009A - Fracture of unspecified part of neck of unspecified femur, initial encounter for closed fracture Status: Acute Assessment and Plan: Orthopedics has been consulted, likely operative repair (2) Fall from ground level: Code(s): W18.30XA - Fall on same level, unspecified, initial encounter Status: Acute Assessment and Plan: Unable to get more information from patient regarding the reason for the fall. (3) Dementia: Qualifiers: Dementia behavioral or psychological symptom: unspecified whether behavioral, psychotic, or mood disturbance or anxiety Dementia severity: unspecified severity Dementia type: unspecified type Qualified Code(s): F03.90 - Unspecified dementia, unspecified severity, without behavioral disturbance, psychotic disturbance, mood disturbance, and anxiety Code(s): F03.90 - Unspecified dementia, unspecified severity, without behavioral disturbance, psychotic disturbance, mood disturbance, and anxiety Status: Acute Assessment and Plan: Patient is confused not oriented to person place or time currently, no signs of head trauma (4) Diabetes mellitus: Code(s): E11.9 - Type 2 diabetes mellitus without complications Status: Acute Assessment and Plan: ACHS fingerstick glucose, on metformin only at home. Obtain A1c (5) Elevated blood pressure reading: Code(s): R03.0 - Elevated blood-pressure reading, without diagnosis of hypertension Status: Acute Assessment and Plan: Blood pressure noted to be highly elevated upon arrival to floor, 203/88. Current blood pressure is 154/74. Patient on metoprolol which is being continued. Time Spent With Patient Time with patient: 25 - 35 minutes Subjective Date/time seen: 04/05/23 11:20 Interval history: ROS and HPI limited due to confusion. Patient has history of dementia. Initially not complaining of any pain or understanding why she is in the hospital. Pain elicited with palpation lateral right hip. Review of Systems Review of Systems: ROS unobtainable: Yes unobtainable due to mental status Exam Narrative: GENERAL: Confused, awake and alert but not oriented. Refers to self as he instead of I when speaking HEENT: Pupils are equally round and briskly reactive to light. Extraocular muscles are intact. Oral mucous membranes are moist without lesions. No traumatic head lesions noted NECK: The patient has no noted JVD. No adenopathy is appreciated. CHEST/LUNGS: Lungs are clear bilaterally without rhonchi, rales, or wheezes. There is no subcutaneous air appreciated. There is no tenderness to the chest wall. HEART: The patient has a regular rate and rhythm. No murmurs, rubs, or gallops are appreciated. Distal pulses are 2+. No carotid bruits appreciated. ABDOMEN: The patient?s abdomen is soft, nontender, and nondistended. Bowel sounds are positive. No peritoneal signs EXTREMITIES: The patient has no peripheral edema. Pain elicited with palpation of the right lateral hip SKIN: The patient?s skin is warm and dry, without rashes or lesions. PSYCHIATRIC: Unable to adequately assess due to altered LOC, appears normal mood NEUROLOGIC: There are no gross deficits to the cranial nerves. Moves all extremities with limitation of the right hip due to fracture Objective Data Vital Signs Vital Signs: Vital Signs - 24 hr 04/04/23 18:16 04/04/23 20:34 04/04/23 20:40 Temperature 37.3 C Pulse Rate 81 78 82 Respiratory Rate 18 19 20 Blood Pressure 203/88 H 135/121 H Pulse Oximetry 94 Oxygen Delivery Room Air 04/04/23 20:43 04/04/23 20:45 04/04/23 20:47 [facility]
[2023-04-05 12:02] LABS: Glucose Point of Care 153 mg/dl (65-105)
[2023-04-05 14:00] VITALS: BP 170/84; PULSE 82; RESP 18; TEMP 37.1; O2SAT 94
--- NOTE | 2023-04-05 15:31 | PM.CNOR ---
Assessment and Plan Assessment and plan (1) Fracture of femoral neck: Qualifiers: Encounter type: initial encounter Fracture type: closed Laterality: right Qualified Code(s): S72.001A - Fracture of unspecified part of neck of right femur, initial encounter for closed fracture Code(s): S72.009A - Fracture of unspecified part of neck of unspecified femur, initial encounter for closed fracture Status: Acute Assessment and Plan: DARELL IS HERE FOR RIGHT FEMORAL NECK FRACTURE. SHE WILL REQUIRE RIGHT HIP HEMIARTHROPLASTY WITH BIPOLAR PROSTHESIS. SHE IS CURRENTLY ON PLAVIX WHICH MAY COMPLICATE HER PERIOPERATIVE PERIOD. HISTORY, EXAM AND RADIOGRAPHS REVIEWED WITH THE PATIENT. REFERRING PHYSICIAN RECORDS AND IMAGES REVIEWED. CONDITION, NATURE, ETIOLOGY AND COURSE OF NATURAL HISTORY REVIEWED. CONSERVATIVE AND OPERATIVE TREATMENT OPTIONS REVIEWED WELL THE RISKS AND BENEFITS OF EACH. RECOMMEND RIGHT HIP BIPOLAR HEMIARTHROPLASTY. DISCUSSED NONOPERATIVE AND OPERATIVE TREATMENT OPTIONS WITH THE PATIENT. THE PATIENT'S QUESTIONS WERE ANSWERED. THE PATIENT DESIRES OPERATIVE TREATMENT. RISKS OF SURGERY INCLUDING BUT NOT LIMITED TO NEUROVASCULAR DAMAGE, WOUND COMPLICATIONS, BLOOD CLOT, PULMONARY EMBOLUS, STROKE, MO, ANESTHETIC RISKS UP TO AND INCLUDING WERE REVIEWED. CONTINUED PAIN AND POSSIBLE DYSFUNCTION WERE EXPLAINED. NO GUARANTEES WERE OFFERED. THE PATIENT UNDERSTANDS AND WISHES TO PROCEED. WE WILL PROCEED ONCE SHE HAS BEEN MEDICALLY CLEARED BY INTERNAL MEDICINE. SHE MAY BENEFIT FROM DISONTINUING PLAVIX FOR A FEW DAYS PRIOR TO SURGICAL TREATMENT. History of Present Illness HPI Consult date: 04/05/23 Chief complaint: R Femoral Neck FX, GLF, Dementia Narrative: DARELL WAS ADMITTED TO THE ED AT [facility] LAST EVENING AFTER A FALL ONTO HER RIGHT HIP. SHE HAD SEVERE PAIN AND WAS DIAGNOSED WITH A RIGHT FEMORAL NECK FRACTURE. SHE DENIES ANY OTHER EXTREMITY OR BACK OR NECK PAIN. SHE DENIES ANY LOC OR HEAD TRAUMA. SHE HAS A HISTORY OF DEMENTIA. SHE ANSWERS SOME QUESTIONS APPROPRIATELY. HISTORY, EXAM AND RADIOGRAPHS REVIEWED WITH THE PATIENT. REFERRING PHYSICIAN RECORDS AND IMAGES REVIEWED. CONDITION, NATURE, ETIOLOGY AND COURSE OF NATURAL HISTORY REVIEWED. CONSERVATIVE AND OPERATIVE TREATMENT OPTIONS REVIEWED WELL THE RISKS AND BENEFITS OF EACH. [facility] Past Medical History Medical History Asthma Coronary artery disease Diabetes mellitus Dyslipidemia Peptic ulcer disease Surgical History Surgical History History of coronary artery stent placement History of total knee replacement Right knee History of tubal ligation Family History Family History Other Diabetes mellitus Social History Social History Smoking status: Never smoker Second hand tobacco smoke exposure: Yes Alcohol intake: former Substance use: never Substance use type: does not use Lack of Transportation: No Lack of Food: Never True Current Housing: I Have Housing Concerned About Future Housing: No Difficulty Paying Gas/Electric Bills: No Difficulty Paying for Meds: No Currently Unemployed: No Education: High School Diploma/GED Difficulty w/ Childcare or Family Care: No Spiritual care concerns: No Meds Home Medications and Allergies Home Medications Medication Instructions Recorded Confirmed Type metformin 500 mg tablet 500 mg PO HS 07/27/21 04/04/23 History metoprolol tartrate 25 mg tablet 25 mg PO BID 07/27/21 04/04/23 History aspirin 81 mg chewable tablet 81 mg PO DAILY 10/19/21 04/04/23 History albuterol sulfate 90 mcg inhalation Q4H PRN asthma 04/04/23 04/04/23 History clopidogrel 75 mg PO DAILY 04/04/23 04/04/23 History ferrous sulfate 325 mg PO DAILY 04/04/23 04/04/23 Hist
[2023-04-05 18:14] LABS: Glucose Point of Care 138 mg/dl (65-105)
[2023-04-05 19:49] VITALS: BP 129/62; PULSE 81; RESP 18; TEMP 37.6; O2SAT 92
[2023-04-05 21:22] VITALS: PULSE 80
[2023-04-05 21:35] LABS: Glucose Point of Care 149 mg/dl (65-105)
[2023-04-06] MEDS: fentaNYL CITRATE INJ (*CRX) 100 MCG/2 ML VIAL 25 MCG IV PUSH ×5 (02:36→21:24)
[2023-04-06] MEDS: SODIUM CHLORIDE 0.9% IV 1,000 ML 100 ML IV CONT (03:32)
[2023-04-06 06:00] VITALS: BP 138/57; PULSE 76; RESP 18; TEMP 36.7; O2SAT 96
[2023-04-06] MEDS: LEVOTHYROXINE SODIUM 50 MCG TABLET PO (06:04)
[2023-04-06 06:40] LABS: Basophils Percent Auto 0.3 % (0.2-1.2); Eosinophils Absolute Auto 0.1 K/mm3 (0-0.3); Eosinophils Percent Auto 0.8 % (0-4.4); Hematocrit 33.6 % (37.0-47.0); Hemoglobin 10.8 g/dL (12.0-15.0); Immature Granulocyte Absolute 0.08 K/mm3 (0.00-0.031); Immature Granulocyte Percent A 0.6 % (0-0.5); Lymphocytes Absolute Auto 0.58 K/mm3 (0.9-3.2); Lymphocytes Percent Auto 4.6 % (18.3-44.2); Mean Corpuscular HGB Conc 32.1 g/dl (32-36); Mean Corpuscular Hemoglobin 32.1 pg (26-34); Mean Platelet Volume 9.6 fl (7.4-10.4); Monocytes Absolute Auto 0.6 K/mm3 (0.1-0.6); Monocytes Percent Auto 4.8 % (2.6-8.5); Neutrophils Absolute Auto 11.2 K/mm3 (1.3-6.7); Neutrophils Percent Auto 88.9 % (45.5-73.1); Platelet Count Result 129 k/mm3 (150-375); Red Blood Count 3.36 M/mm3 (4.2-5.4); Red Cell Distribution Width 12.5 % (11.5-14.5); White Blood Count 12.6 K/mm3 (4.5-10.0)
[2023-04-06 06:54] LABS: Anion Gap 7 mmol/L (8-16); Blood Urea Nitrogen 11 mg/dL (7-17); Calcium 8.1 mg/dL (8.4-10.2); Carbon Dioxide 24 mmol/L (22-30); Chloride 104 mmol/L (98-107); Estimated CRCL calculation 41 ml/min; Estimated Glomerular Filt Rate > 60; Glucose 144 mg/dL (65-110); Magnesium 1.9 mg/dL (1.6-2.3); Phosphorus 2.7 mg/dL (2.5-4.5); Potassium 3.8 mmol/L (3.4-5.0); Sodium 135 mmol/L (137-145)
[2023-04-06 09:08] LABS: Glucose Point of Care 140 mg/dl (65-105)
[2023-04-06] MEDS: FERROUS SULFATE 325 MG TABLET DR BY MOUTH (09:09)
--- NOTE | 2023-04-06 09:36 | PM.IMPN ---
Progress Note: A&P Assessment and Plan (1) Fracture of femoral neck: Qualifiers: Encounter type: initial encounter Fracture type: closed Laterality: right Qualified Code(s): S72.001A - Fracture of unspecified part of neck of right femur, initial encounter for closed fracture Code(s): S72.009A - Fracture of unspecified part of neck of unspecified femur, initial encounter for closed fracture Status: Acute Assessment and Plan: Orthopedics has been consulted, operative repair likely on 04/07 (2) Fall from ground level: Code(s): W18.30XA - Fall on same level, unspecified, initial encounter Status: Acute Assessment and Plan: Unable to get more information from patient regarding the reason for the fall. (3) Dementia: Qualifiers: Dementia behavioral or psychological symptom: unspecified whether behavioral, psychotic, or mood disturbance or anxiety Dementia severity: unspecified severity Dementia type: unspecified type Qualified Code(s): F03.90 - Unspecified dementia, unspecified severity, without behavioral disturbance, psychotic disturbance, mood disturbance, and anxiety Code(s): F03.90 - Unspecified dementia, unspecified severity, without behavioral disturbance, psychotic disturbance, mood disturbance, and anxiety Status: Acute Assessment and Plan: Patient is confused not oriented to person place or time currently, no signs of head trauma. Patient more agitated than yesterday (4) Diabetes mellitus: Code(s): E11.9 - Type 2 diabetes mellitus without complications Status: Acute Assessment and Plan: A1c 6.3. Patient highly agitated about finger stick glucose. Track with daily labs only for now. (5) Elevated blood pressure reading: Code(s): R03.0 - Elevated blood-pressure reading, without diagnosis of hypertension Status: Acute Assessment and Plan: Blood pressure noted to be highly elevated upon arrival to floor, 203/88. Current blood pressure is 138/57. Patient on metoprolol which is being continued. Blood pressure reviewed 04/06 Plan Operative repair right hip fracture likely tomorrow, delayed due to Plavix prescription Time Spent With Patient Time with patient: 25 - 35 minutes Subjective Date/time seen: 04/06/23 09:36 Interval history: ROS and HPI limited due to confusion. Patient has history of dementia. Initially not complaining of any pain or understanding why she is in the hospital. Pain elicited with palpation lateral right hip. 04/06: Patient upset this morning with strain to medication. She kept talking about she is not diabetic and does not want her fingers stuck for blood sugar check Review of Systems Review of Systems: ROS unobtainable: Yes unobtainable due to mental status Exam Narrative: GENERAL: Confused, awake and alert but not oriented. Patient more agitated today HEENT: Pupils are equally round and briskly reactive to light. Extraocular muscles are intact. Oral mucous membranes are moist without lesions. No traumatic head lesions noted NECK: The patient has no noted JVD. No adenopathy is appreciated. CHEST/LUNGS: Lungs are clear bilaterally without rhonchi, rales, or wheezes. There is no subcutaneous air appreciated. There is no tenderness to the chest wall. HEART: The patient has a regular rate and rhythm. No murmurs, rubs, or gallops are appreciated. Distal pulses are 2+. No carotid bruits appreciated. ABDOMEN: The patient?s abdomen is soft, nontender, and nondistended. Bowel sounds are positive. No peritoneal signs EXTREMITIES: The patient has no peripheral edema. Pain elicited with palpation of the right lateral hip SKIN: The patient?s skin is warm and dry, without rashes or lesions. PSYCHIATRIC: Unable to adequately assess due to altered LOC, appears normal mood NEUROLOGIC: There are no gross deficits to the cranial nerves. Moves all extremities with limitation of the right hip due to f
--- NOTE | 2023-04-06 09:45 | PC.NURSE ---
Patient very disoriented and uncooperative this morning. She is unwilling to take her morning medication as of now, will try again soon.
[2023-04-06 11:42] VITALS: PULSE 76
[2023-04-06] MEDS: METOPROLOL TARTRATE 25 MG TABLET PO ×2 (11:42→21:25)
[2023-04-06 12:02] LABS: Glucose Point of Care 143 mg/dl (65-105)
[2023-04-06 14:00] VITALS: BP 174/64; PULSE 65; RESP 18; TEMP 36.5; O2SAT 95
[2023-04-06 17:47] LABS: Glucose Point of Care 114 mg/dl (65-105)
[2023-04-06 20:04] VITALS: BP 158/60; PULSE 75; RESP 20; TEMP 37.1; O2SAT 94
[2023-04-06 21:25] VITALS: PULSE 75
[2023-04-06] MEDS: metFORMIN HCL 500 MG TABLET PO (21:26)
[2023-04-07] VITALS (16 sets, daily range): BP systolic 128–176; BP diastolic 57–75; PULSE 62–76; RESP 14–20; TEMP 36.2–37.7; O2SAT 92–100
[2023-04-07 05:27] LABS: Basophils Percent Auto 0.4 % (0.2-1.2); Eosinophils Absolute Auto 0.2 K/mm3 (0-0.3); Hematocrit 31.9 % (37.0-47.0); Hemoglobin 10.1 g/dL (12.0-15.0); Immature Granulocyte Absolute 0.05 K/mm3 (0.00-0.031); Immature Granulocyte Percent A 0.5 % (0-0.5); Lymphocytes Absolute Auto 0.64 K/mm3 (0.9-3.2); Lymphocytes Percent Auto 5.9 % (18.3-44.2); Mean Corpuscular HGB Conc 31.7 g/dl (32-36); Mean Corpuscular Hemoglobin 31.9 pg (26-34); Mean Corpuscular Volume 100.6 fl (80-100); Mean Platelet Volume 9.7 fl (7.4-10.4); Monocytes Absolute Auto 0.7 K/mm3 (0.1-0.6); Monocytes Percent Auto 6.4 % (2.6-8.5); Neutrophils Absolute Auto 9.3 K/mm3 (1.3-6.7); Neutrophils Percent Auto 84.8 % (45.5-73.1); Platelet Count Result 126 k/mm3 (150-375); Red Blood Count 3.17 M/mm3 (4.2-5.4); Red Cell Distribution Width 12.2 % (11.5-14.5); White Blood Count 10.9 K/mm3 (4.5-10.0)
[2023-04-07 05:41] LABS: Anion Gap 6 mmol/L (8-16); Blood Urea Nitrogen 13 mg/dL (7-17); Calcium 8.1 mg/dL (8.4-10.2); Carbon Dioxide 23 mmol/L (22-30); Chloride 106 mmol/L (98-107); Estimated CRCL calculation 37 ml/min; Estimated Glomerular Filt Rate > 60; Glucose 98 mg/dL (65-110); Potassium 3.6 mmol/L (3.4-5.0); Sodium 135 mmol/L (137-145)
--- NOTE | 2023-04-07 07:17 | WPDHPUPDATE1 ---
History and Physical Update Update Date/Time: 04/07/23 07:17 History and Physical has been reviewed, including an updated exam of the patient. There are NO changes in the patient's condition. Risks, benefits, and alternatives have been discussed and questions answered. Patient agrees to proceed with procedure.
--- NOTE | 2023-04-07 08:24 | WPDANESEPPF ---
Anes - Initial Pre Proc Eval Procedure: Operation Date: 04/07/23 09:00 Proposed Procedures p Right Bipolar Hip Replacement - Pérez Borrego MD Date/Time: 04/07/23 08:24 Surgeon: Atul Holley MD Pre Op Diagnosis: R Femoral Neck FX, GLF, Dementia Patient Data Age: 78 Gender: F Height: 1.57 m Weight: 58.6 kg Last Vital Signs Temp 37.7 C H 04/07/23 08:04 Pulse 72 04/07/23 08:04 Resp 18 04/07/23 08:04 BP 176/62 H 04/07/23 08:04 Pulse Ox 99 04/07/23 08:04 O2 Del Method Room Air 04/07/23 08:04 Allergies Allergy/AdvReac Type Severity Reaction Status Date / Time strawberry Allergy Severe Hives Verified 04/04/23 22:55 Sulfa (Sulfonamide Allergy Severe HIVES Verified 04/04/23 22:55 Antibiotics) ammonium chloride Allergy Unknown AMMONIA Verified 04/04/23 22:55 ALLERGY erythromycin base Allergy Unknown Unknown Verified 04/04/23 22:55 Penicillins Allergy Unknown Unknown Verified 04/04/23 22:55 codeine AdvReac Intermediate VOMITING Verified 04/04/23 22:55 Home Medications Medication Instructions Recorded Confirmed Type metformin 500 mg tablet 500 mg PO HS 07/27/21 04/04/23 History metoprolol tartrate 25 mg tablet 25 mg PO BID 07/27/21 04/04/23 History aspirin 81 mg chewable tablet 81 mg PO DAILY 10/19/21 04/04/23 History albuterol sulfate 90 mcg inhalation Q4H PRN asthma 04/04/23 04/04/23 History clopidogrel 75 mg PO DAILY 04/04/23 04/04/23 History ferrous sulfate 325 mg PO DAILY 04/04/23 04/04/23 History levothyroxine 50 mcg PO DAILY 04/04/23 04/04/23 History memantine 5 mg PO BID 04/04/23 04/04/23 History Laboratory Tests 04/06/23 04/06/23 04/06/23 08:14 11:53 17:23 WBC RBC Hgb Hct MCV MCH MCHC RDW Plt Count MPV Immature Gran % (Auto) Neut % (Auto) Lymph % (Auto) Randall % (Auto) Eos % (Auto) Baso % (Auto) Lymph # (Auto) Randall # (Auto) Eos # (Auto) Baso # (Auto) Abs Immat Gran (auto) Absolute Neuts (auto) Absolute Nucleated RBC Nucleated RBC % Sodium Potassium Chloride Carbon Dioxide Anion Gap BUN Creatinine Estim Creat Clear Calc Estimated GFR Glucose POC Capillary Glucose 140 H mg/dl 143 H mg/dl 114 H mg/dl (65-105) (65-105) (65-105) Calcium 04/07/23 04:53 WBC 10.9 H K/mm3 (4.5-10.0) RBC 3.17 L M/mm3 (4.2-5.4) Hgb 10.1 L g/dL (12.0-15.0) Hct 31.9 L % (37.0-47.0) MCV 100.6 H fl (80-100) MCH 31.9 pg (26-34) MCHC 31.7 L g/dl (32-36) RDW 12.2 % (11.5-14.5) Plt Count 126 L k/mm3 (150-375) MPV 9.7 fl (7.4-10.4) Immature Gran % (Auto) 0.5 % (0-0.5) Neut % (Auto) 84.8 H % (45.5-73.1) Lymph % (Auto) 5.9 L % (18.3-44.2) Randall % (Auto) 6.4 % (2.6-8.5) Eos % (Auto) 2.0 % (0-4.4) Baso % (Auto) 0.4 % (0.2-1.2) Lymph # (Auto) 0.64 L K/mm3 (0.9-3.2) Randall # (Auto) 0.7 H K/mm3 (0.1-0.6) Eos # (Auto) 0.2 K/mm3 (0-0.3) Baso # (Auto) 0.0 K/mm3 (0.0-0.1) Abs Immat Gran (auto) 0.05 H K/mm3 (0.00-0.031) Absolute Neuts (auto) 9.3 H K/mm3 (1.3-6.7) Absolute Nucleated RBC 0.0 K/mm3 (0.0-0.012) Nucleated RBC % 0.0 % (0.0-0.2) Sodium 135 L mmol/L (137-145) Potassium 3.6 mmol/L (3.4-5.0) Chloride 106 mmol/L (98-107) Carbon Dioxide 23 mmol/L (22-30) Anion Gap 6 L mmol/L (8-16) BUN 13 mg/dL (7-17) Creatinine 0.90 mg/dL (0.7-1.0) Estim Creat Clear Calc 37 ml/min Estimated GFR > 60 (59 - ) Glucose 98 mg/dL (65-110) POC Capillary Glucose Calcium 8.1 L
[2023-04-07] MEDS: TRANEXAMIC ACID 1,000MG/ISO100 1,000 MG/100 ML BAG 200 MG IVPB (08:32)
[2023-04-07] MEDS: LACTATED RINGERS 1,000 ML 30 ML IV CONT ×2 (08:34→11:43)
[2023-04-07 09:20] LABS: Glucose Point of Care 94 mg/dl (65-105)
[2023-04-07] MEDS: ceFAZolin 2 GM/D5W 50 ML 2 GM/50 ML BAG IVPB ×2 (09:27→18:26)
--- NOTE | 2023-04-07 09:30 | PM.IMPN ---
Progress Note: A&P Assessment and Plan (1) Fracture of femoral neck: Qualifiers: Encounter type: initial encounter Fracture type: closed Laterality: right Qualified Code(s): S72.001A - Fracture of unspecified part of neck of right femur, initial encounter for closed fracture Code(s): S72.009A - Fracture of unspecified part of neck of unspecified femur, initial encounter for closed fracture Status: Acute Assessment and Plan: Bipolar hip replacement completed on 04/07 (2) Fall from ground level: Code(s): W18.30XA - Fall on same level, unspecified, initial encounter Status: Acute Assessment and Plan: Unable to get more information from patient regarding the reason for the fall. (3) Dementia: Qualifiers: Dementia behavioral or psychological symptom: unspecified whether behavioral, psychotic, or mood disturbance or anxiety Dementia severity: unspecified severity Dementia type: unspecified type Qualified Code(s): F03.90 - Unspecified dementia, unspecified severity, without behavioral disturbance, psychotic disturbance, mood disturbance, and anxiety Code(s): F03.90 - Unspecified dementia, unspecified severity, without behavioral disturbance, psychotic disturbance, mood disturbance, and anxiety Status: Acute Assessment and Plan: Patient is confused not oriented to person place or time currently, no signs of head trauma. (4) Diabetes mellitus: Code(s): E11.9 - Type 2 diabetes mellitus without complications Status: Acute Assessment and Plan: A1c 6.3. Patient highly agitated about finger stick glucose. Track with daily labs only for now. (5) Elevated blood pressure reading: Code(s): R03.0 - Elevated blood-pressure reading, without diagnosis of hypertension Status: Acute Assessment and Plan: Blood pressure noted to be highly elevated upon arrival to floor, 203/88. Current blood pressure is 133/60. Patient on metoprolol which is being continued. Blood pressure reviewed 04/07 Plan Bipolar hip replacement 04/07 PT OT per Orthopedic surgery Restart anticoagulation per Orthopedic surgery Time Spent With Patient Time with patient: 25 - 35 minutes Subjective Date/time seen: 04/07/23 09:30 Interval history: ROS and HPI limited due to confusion. Patient has history of dementia. Initially not complaining of any pain or understanding why she is in the hospital. Pain elicited with palpation lateral right hip. 04/06: Patient upset this morning with strain to medication. She kept talking about she is not diabetic and does not want her fingers stuck for blood sugar check 04/07: Patient seen preoperatively, awake and alert but not oriented. ROS and HPI limited for this reason. Review of Systems Review of Systems: ROS unobtainable: Yes unobtainable due to mental status Exam Narrative: GENERAL: Confused, awake and alert but not oriented. HEENT: Pupils are equally round and briskly reactive to light. Extraocular muscles are intact. Oral mucous membranes are moist without lesions. No traumatic head lesions noted NECK: The patient has no noted JVD. No adenopathy is appreciated. CHEST/LUNGS: Lungs are clear bilaterally without rhonchi, rales, or wheezes. There is no subcutaneous air appreciated. There is no tenderness to the chest wall. HEART: The patient has a regular rate and rhythm. No murmurs, rubs, or gallops are appreciated. Distal pulses are 2+. No carotid bruits appreciated. ABDOMEN: The patient?s abdomen is soft, nontender, and nondistended. Bowel sounds are positive. No peritoneal signs EXTREMITIES: The patient has no peripheral edema. Pain elicited with palpation of the right lateral hip SKIN: The patient?s skin is warm and dry, without rashes or lesions. PSYCHIATRIC: Unable to adequately assess due to altered LOC, appears normal mood NEUROLOGIC: There are no gross deficits to the cranial nerves. Moves all extremit
[2023-04-07] MEDS: TRANEXAMIC ACID 1,000 MG/10 ML AMPUL 1000 MG IV PUSH (11:00)
--- NOTE | 2023-04-07 11:53 | W.PM.PROC2 ---
Procedure Note - Detailed Date of Procedure 04/07/23 Pre-op Diagnosis R Femoral Neck FX, GLF, Dementia Post-op Diagnosis Same Procedure Performed RIGHT HIP HEMIARTHROPLASTY WITH BIPOLAR PROSTHESIS Surgeon Pérez Borrego MD Anesthesia General Description of Procedure THE PATIENT WAS TAKEN TO THE OPERATING ROOM IN STABLE CONDITION. HE WAS PLACED IN THE LATERAL DECUBITUS AND THE RIGHT LOWER EXTREMITY WAS PREPPED AND DRAPED IN THE STERILE FASHION. INCISION WAS MADE IN THE POSTERIOR LATERAL SIDE OF THE HIP, DOWN TO THE FASCIA LAYER. THE FASCIA WAS INCISED. THE HIP WAS EXPOSED. THE SHORT EXTERNAL ROTATORS WERE EXPOSED AND THERE WAS A LARGE HEMATOMA. THE CAPSULE WAS INCISED EXPOSING THE FRACTURE. THE FEMORAL HEAD WAS REMOVED. IT MEASURED 45 MM. AN OSTEOTOMY WAS MADE TO THE FEMORAL NECK ABOUT 1 CM PROXIMAL TO THE LESSER TROCHANTER. NEXT THE FEMUR WAS PREPARED WITH INITIAL CANAL FINDER THEN SEQUENTIAL REAMING UNTIL A #9 REAMER AND BROACHING TILL A #8 BROACH FIT WELL IN 15 OF ANTE VERSION. A +0 HIGH OFFSET NECK BIPOLAR TRIAL IN A 45 MM SHELL WAS PLACED. THE SHUCK TEST WAS EXCELLENT AND THE STABILITY IN FLEXION AND ROTATION WAS EXCELLENT. LEG LENGTHS WERE GROSSLY EQUAL. TRIALS WERE REMOVED. AN ECHO FRACTURE STEM #8 PRESS FIT STEM WAS PLACED WITH A HIGH OFFSET IN 15 DEG OF ANTEVERSION. A +0 BIPOLAR HEAD NECK TRIAL WAS PLACED AGAIN. THE HIP WAS TRIALED AND THE STABILITY WAS EXCELLENT WERE THE LEG LENGTHS AND THE SHUCK TEST. NEXT A BIPOLAR HEAD NECK +0 IMPLANT WITH A 45 MM COBALT CHROME SHELL WAS PLACED AND TRIALED ONCE AGAIN SHOWING EXCELLENT STABILITY AND GROSSLY EQUAL LEG LENGTHS. THE WOUND WAS IRRIGATED WITH STERILE BETADINE AND WATER FOR 3 MIN. THEN WASHED AGAIN. THE CAPSULE AND THE EXTERNAL ROTATORS WERE APPROXIMATED WITH NUMBER 1 VICRYL. THE FASCIA WITH No 2 QUIL AND THE SUB CUTANEOUS LAYER WITH 2-0 ABSORBABLE SUTURE WITH A RUNNING 3-0 SUBCUTICULAR LAYER WITH STRATAFIX WELL. DERMABOND WAS PLACED AND STERILE DRESSING WAS APPLIED. PATIENT WAS PLACED BACK ON TO THE SUPINE POSITION AND WAS EXTUBATED. Estimated Blood Loss 250 Urine Output 500 Drains No Pathology None sent Complications No immediate complications Condition Stable Disposition PACU
[2023-04-07] MEDS: fentaNYL CITRATE INJ (*CRX) 100 MCG/2 ML VIAL 25 MCG IV PUSH ×2 (12:02→12:12)
[2023-04-07] MEDS: METOPROLOL TARTRATE 25 MG TABLET PO (13:40)
[2023-04-07] MEDS: FERROUS SULFATE 325 MG TABLET DR BY MOUTH (13:40)
[2023-04-07] MEDS: diazePAM (*CRX) 5 MG TABLET PO (23:21)
[2023-04-07] MEDS: HYDROcodone/acetaminophen (*CRX) 7.5-325 MG TABLET 1 TAB PO (23:22)
[2023-04-08] MEDS: ceFAZolin 2 GM/D5W 50 ML 2 GM/50 ML BAG IVPB ×2 (03:07→12:08)
[2023-04-08 04:58] VITALS: BP 162/81; PULSE 80; RESP 18; TEMP 36.4; O2SAT 98
[2023-04-08 05:01] VITALS: BP 162/81; PULSE 80; RESP 18; TEMP 36.4; O2SAT 98
[2023-04-08] MEDS: LEVOTHYROXINE SODIUM 50 MCG TABLET PO (05:06)
[2023-04-08 06:13] LABS: Basophils Percent Auto 0.2 % (0.2-1.2); Eosinophils Percent Auto 0.2 % (0-4.4); Hematocrit 30.3 % (37.0-47.0); Hemoglobin 9.9 g/dL (12.0-15.0); Immature Granulocyte Absolute 0.07 K/mm3 (0.00-0.031); Immature Granulocyte Percent A 0.6 % (0-0.5); Lymphocytes Absolute Auto 0.63 K/mm3 (0.9-3.2); Lymphocytes Percent Auto 5.2 % (18.3-44.2); Mean Corpuscular HGB Conc 32.7 g/dl (32-36); Mean Corpuscular Hemoglobin 32.1 pg (26-34); Mean Corpuscular Volume 98.4 fl (80-100); Mean Platelet Volume 9.5 fl (7.4-10.4); Monocytes Percent Auto 8.4 % (2.6-8.5); Neutrophils Absolute Auto 10.4 K/mm3 (1.3-6.7); Neutrophils Percent Auto 85.4 % (45.5-73.1); Platelet Count Result 138 k/mm3 (150-375); Red Blood Count 3.08 M/mm3 (4.2-5.4); Red Cell Distribution Width 12.2 % (11.5-14.5); White Blood Count 12.2 K/mm3 (4.5-10.0)
[2023-04-08 06:26] LABS: Anion Gap 6 mmol/L (8-16); Blood Urea Nitrogen 19 mg/dL (7-17); Calcium 8.3 mg/dL (8.4-10.2); Carbon Dioxide 25 mmol/L (22-30); Chloride 105 mmol/L (98-107); Estimated CRCL calculation 37 ml/min; Estimated Glomerular Filt Rate > 60; Glucose 180 mg/dL (65-110); Potassium 3.9 mmol/L (3.4-5.0); Sodium 136 mmol/L (137-145)
--- NOTE | 2023-04-08 10:59 | PM.IMPN ---
Progress Note: A&P Assessment and Plan (1) Fracture of femoral neck: Qualifiers: Encounter type: initial encounter Fracture type: closed Laterality: right Qualified Code(s): S72.001A - Fracture of unspecified part of neck of right femur, initial encounter for closed fracture Code(s): S72.009A - Fracture of unspecified part of neck of unspecified femur, initial encounter for closed fracture Status: Acute Assessment and Plan: Bipolar hip replacement completed on 04/07 (2) Fall from ground level: Code(s): W18.30XA - Fall on same level, unspecified, initial encounter Status: Acute Assessment and Plan: Unable to get more information from patient regarding the reason for the fall. (3) Dementia: Qualifiers: Dementia behavioral or psychological symptom: unspecified whether behavioral, psychotic, or mood disturbance or anxiety Dementia severity: unspecified severity Dementia type: unspecified type Qualified Code(s): F03.90 - Unspecified dementia, unspecified severity, without behavioral disturbance, psychotic disturbance, mood disturbance, and anxiety Code(s): F03.90 - Unspecified dementia, unspecified severity, without behavioral disturbance, psychotic disturbance, mood disturbance, and anxiety Status: Acute Assessment and Plan: Patient is confused not oriented to person place or time currently, no signs of head trauma. (4) Diabetes mellitus: Code(s): E11.9 - Type 2 diabetes mellitus without complications Status: Acute Assessment and Plan: A1c 6.3. Patient highly agitated about finger stick glucose. Track with daily labs only for now. (5) Elevated blood pressure reading: Code(s): R03.0 - Elevated blood-pressure reading, without diagnosis of hypertension Status: Acute Assessment and Plan: Blood pressure noted to be highly elevated upon arrival to floor, 203/88. Current blood pressure is 162/81. Patient on metoprolol which is being continued. Blood pressure reviewed 04/08 Plan Bipolar hip replacement 04/07 PT OT per Orthopedic surgery Restart anticoagulation per Orthopedic surgery DC Greenberg catheter Patient stable from medical standpoint for rehab/skilled therapy when OK with PT/OT/Orthopedic Surgery Time Spent With Patient Time with patient: 25 - 35 minutes Subjective Date/time seen: 04/08/23 10:59 Interval history: POD 1 s/p right bipolar hip replacement. Patient walked with physical therapy but was not cooperative with occupational therapy. Patient has expressive dysphasia and it is hard to understand what she is talking about much of the time. Patient states her hip hurts but she appeared in good spirits and appeared like pain was controlled. Review of Systems Review of Systems: ROS unobtainable: Yes unobtainable due to medical condition (expressive dysphasia) Exam Narrative: GENERAL: Awake and alert, appears comfortable, expressive dysphasia with word salad that is chronic HEENT: Pupils are equally round and briskly reactive to light. Extraocular muscles are intact. Oral mucous membranes are moist without lesions. No traumatic head lesions noted NECK: The patient has no noted JVD. No adenopathy is appreciated. CHEST/LUNGS: Lungs are clear bilaterally without rhonchi, rales, or wheezes. There is no subcutaneous air appreciated. There is no tenderness to the chest wall. HEART: The patient has a regular rate and rhythm. No murmurs, rubs, or gallops are appreciated. Distal pulses are 2+. No carotid bruits appreciated. ABDOMEN: The patient?s abdomen is soft, nontender, and nondistended. Bowel sounds are positive. No peritoneal signs EXTREMITIES: The patient has no peripheral edema. Pain elicited with palpation of the right lateral hip. Right hip dressing clean dry intact with no evidence of surrounding induration. SKIN: The patient?s skin is warm and dry, without rashes or lesions. PSYCHIATRIC: Unable to adequate
[2023-04-08] MEDS: HEPARIN SODIUM 5,000 UNITS/ML VIAL 5000 UNITS SUB-Q (12:19)
--- NOTE | 2023-04-08 13:11 | PM.PNORT ---
Progress Note: A&P Assessment and Plan (1) Fracture of femoral neck: Qualifiers: Encounter type: subsequent encounter Fracture type: closed Laterality: right Fracture healing: with routine healing Qualified Code(s): S72.001D - Fracture of unspecified part of neck of right femur, subsequent encounter for closed fracture with routine healing Code(s): S72.009A - Fracture of unspecified part of neck of unspecified femur, initial encounter for closed fracture Status: Acute Assessment and Plan: Postoperative day 1 right hip bipolar. Patient oriented to self but disoriented to place and time. Right hip incision benign. Neurovascular intact. PT/OT transfers, ambulate. Pain control. Try to limit narcotics due to confusion. Subjective Subjective Date/Time Seen: 04/08/23 13:11 Post Op day: 1 Principal diagnosis: Right hip femoral neck fracture Interval history: Patient resting comfortably. Awake and alert. Confused today. Oriented to person only. Complains of minimal pain right hip. Exam Const: General: comfortable; No acute distress Orientation/consciousness: oriented to person, No oriented to place and No oriented to time HENMT: Head: normal to inspection, normocephalic and atraumatic Resp: Effort & Inspection: normal respiratory effort and no audible wheezes Extrem: Right lower extremity: hip/thigh ( dressing in place, clean and dry. Muscle soft.), lower leg ( Negative Homans sign), ankle Details: normal ROM ( dorsiflexion and plantar flexion intact) and foot Details: vascular exam Details: dorsalis pedis pulse present and normal capillary refill, tendon exam Details: active flexion normal and active extension normal and motor-sensory exam Details: light-touch normal Location: in all toes; no edema Left lower extremity: normal to inspection, ankle Details: normal ROM and foot Details: vascular exam Details: dorsalis pedis pulse present and normal capillary refill and motor-sensory exam light-touch normal in all toes; no edema Objective Data Vital Signs Vital Signs: Vital Signs - 24 hr 04/07/23 13:40 04/07/23 13:42 04/07/23 13:25 Temperature 97.6 F Pulse Rate 63 62 64 Respiratory Rate 14 18 Blood Pressure 153/63 H 169/63 H Pulse Oximetry 96 100 Oxygen Delivery 04/07/23 13:40 04/07/23 14:10 04/07/23 15:09 Temperature 97.6 F 97.6 F Pulse Rate 67 71 Respiratory Rate 18 18 Blood Pressure 153/63 H 165/71 H Pulse Oximetry 96 99 Oxygen Delivery Room Air 04/07/23 15:10 04/07/23 21:16 04/07/23 21:19 Temperature 97.6 F 97.9 F 97.9 F Pulse Rate 74 76 76 Respiratory Rate 18 18 18 Blood Pressure 174/75 H 175/74 H 175/74 H Pulse Oximetry 98 96 96 Oxygen Delivery 04/07/23 21:12 04/07/23 20:40 04/08/23 04:58 Temperature 97.6 F Pulse Rate 72 80 Respiratory Rate 18 Blood Pressure 162/81 H Pulse Oximetry 98 Oxygen Delivery Room Air 04/08/23 05:01 Temperature 97.6 F Pulse Rate 80 Respiratory Rate 18 Blood Pressure 162/81 H Pulse Oximetry 98 Oxygen Delivery Intake/Output Intake/Output: Intake & Output 04/05/23 04/06/23 04/07/23 04/08/23 23:59 23:59 23:59 23:59 Intake Total 2220 1000 1060 340 Output Total 2300 2250 2000 600 Balance -80 -1250 -940 -260 Meds/Results Medications: Active Medications Generic Name Dose Route Start Last Admin Trade Name Freq PRN Reason Stop Dose Admin Acetaminophen 650 mg 04/07/23 11:47 Acetaminophen 325 Mg Tablet PO Q6H PRN Mild Pain (1-3) or Fever Hydrocodone Bitart/Acetaminophen 1 tab 04/07/23 11:47 04/07/23 23:22 Hydrocodone/Acetaminophen (*Crx) 7.5-325 Mg Tablet PO 1 tab Q3H PRN Administration Pain Rated 4-6 Hydrocodone Bitart/Acetaminophen 2 tab 04/07/23 11:47 Hydrocodone/Acetaminophen (*Crx) 5-325 Mg Tablet PO Q6H PRN Pain Rated 7-10 Albuterol 2 puff 04/05/23 01:30 Albuterol Sulfate (*Sp) Aerosol 1 Puff INHALATION Q4
[2023-04-08 13:32] VITALS: BP 118/60; PULSE 70; RESP 16; TEMP 36.6; O2SAT 98
--- NOTE | 2023-04-08 14:54 | P.PNAN_ITS ---
Anes - Prog Note Post-Op Date/Time: 04/08/23 14:54 Cardiovascular status: normal Respiratory status: normal Airway patency: baseline Mental status: baseline Post-Op hydration status: normal Vital Signs: Last Vital Signs Temp 36.6 C 04/08/23 13:32 Pulse 70 04/08/23 13:32 Resp 16 04/08/23 13:32 BP 118/60 04/08/23 13:32 Pulse Ox 98 04/08/23 13:32 O2 Del Method Room Air 04/07/23 20:40 O2 Flow Rate 8 04/07/23 11:50 Pain Score (VAS): 10/14 I/O: Intake & Output 04/07/23 04/08/23 04/08/23 23:59 07:59 15:59 Intake Total 320 340 120 Output Total 200 600 Balance 120 -260 120 Laboratory Tests 04/08/23 06:04 04/08/23 06:04 04/08/23 06:04 WBC 12.2 H RBC 3.08 L Hgb 9.9 L Hct 30.3 L MCV 98.4 MCH 32.1 MCHC 32.7 RDW 12.2 Plt Count 138 L MPV 9.5 Immature Gran % (Auto) 0.6 H Neut % (Auto) 85.4 H Lymph % (Auto) 5.2 L [place] % (Auto) 8.4 Eos % (Auto) 0.2 Baso % (Auto) 0.2 Lymph # (Auto) 0.63 L [place] # (Auto) 1.0 H Eos # (Auto) 0.0 Baso # (Auto) 0.0 Abs Immat Gran (auto) 0.07 H Absolute Neuts (auto) 10.4 H Absolute Nucleated RBC 0.0 Nucleated RBC % 0.0 Sodium 136 L Potassium 3.9 Chloride 105 Carbon Dioxide 25 Anion Gap 6 L BUN 19 H Creatinine 0.90 Estim Creat Clear Calc 37 Estimated GFR > 60 Glucose 180 H Calcium 8.3 L Post-procedural complaints: none Patient Feedback: Patient satisfied with anesthetic care.
[2023-04-08 19:06] VITALS: BP 154/64; PULSE 80; RESP 17; TEMP 36.6; O2SAT 100
[2023-04-08] MEDS: MEMANTINE 5 MG TABLET PO (21:33)
[2023-04-08] MEDS: SENNA/DOCUSATE SODIUM TABLET 2 TAB PO (21:33)
[2023-04-08 21:34] VITALS: PULSE 80
[2023-04-08] MEDS: METOPROLOL TARTRATE 25 MG TABLET PO (21:34)
[2023-04-08] MEDS: diazePAM (*CRX) 5 MG TABLET PO (21:36)
[2023-04-08] MEDS: metFORMIN HCL 500 MG TABLET PO (21:36)
[2023-04-08] MEDS: HYDROcodone/acetaminophen (*CRX) 7.5-325 MG TABLET 1 TAB PO (21:36)
[2023-04-09 04:14] VITALS: BP 161/63; PULSE 68; RESP 17; TEMP 36.1; O2SAT 99
[2023-04-09] MEDS: HYDROcodone/acetaminophen (*CRX) 7.5-325 MG TABLET 1 TAB PO ×2 (07:20→21:19)
[2023-04-09] MEDS: LEVOTHYROXINE SODIUM 50 MCG TABLET PO (07:21)
[2023-04-09] MEDS: HEPARIN SODIUM 5,000 UNITS/ML VIAL 5000 UNITS SUB-Q (10:27)
--- NOTE | 2023-04-09 10:53 | PM.IMPN ---
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 (3) Dementia: Qualifiers: Dementia behavioral or psychological symptom: unspecified whether behavioral, psychotic, or mood disturbance or anxiety Dementia severity: unspecified severity Dementia type: unspecified type Qualified Code(s): F03.90 - Unspecified dementia, unspecified severity, without behavioral disturbance, psychotic disturbance, mood disturbance, and anxiety Code(s): F03.90 - Unspecified dementia, unspecified severity, without behavioral disturbance, psychotic disturbance, mood disturbance, and anxiety Status: Acute Assessment and Plan: Patient is confused not oriented to person place or time currently, no signs of head trauma. Word salad has been noted since admission, improved today (4) Diabetes mellitus: Code(s): E11.9 - Type 2 diabetes mellitus without complications Status: Acute Assessment and Plan: A1c 6.3. Patient highly agitated about finger stick glucose. Track with daily labs only for now. 04/09: Morning labs with stable glucose (5) Elevated blood pressure reading: Code(s): R03.0 - Elevated blood-pressure reading, without diagnosis of hypertension Status: Acute Assessment and Plan: Blood pressure noted to be highly elevated upon arrival to floor, 203/88. Current blood pressure is 161/63. Patient on metoprolol which is being continued. Blood pressure reviewed 04/09 Patient refusing metoprolol and all oral meds on 04/08 per RN. Plan Bipolar hip replacement 04/07 PT OT per Orthopedic surgery anticoagulation heparin SQ BID per orthopedics DC Greenberg catheter Patient stable from medical standpoint for rehab/skilled therapy when OK with PT/OT/Orthopedic Surgery, awaiting placement acceptance Time Spent With Patient Time with patient: 25 - 35 minutes Subjective Date/time seen: 04/09/23 10:53 Interval history: Patient seen while up in a chair. She appears more oriented today and it is easier to have a discussion. Awaiting rehabilitation acceptance. Greenberg ordered for removal yesterday but patient was uncooperative with nursing staff attempts to remove. I informed patient it needed to be removed today and she stated ok. Review of Systems Review of Systems: All systems reviewed & are unremarkable except as noted in HPI and below Exam Narrative: GENERAL: Awake and alert, appears comfortable, easier to communicate with today, still some word salad noted HEENT: Pupils are equally round and briskly reactive to light. Extraocular muscles are intact. Oral mucous membranes are moist without lesions. No traumatic head lesions noted NECK: The patient has no noted JVD. No adenopathy is appreciated. CHEST/LUNGS: Lungs are clear bilaterally without rhonchi, rales, or wheezes. There is no subcutaneous air appreciated. There is no tenderness to the chest wall. HEART: The patient has a regular rate and rhythm. No murmurs, rubs, or gallops are appreciated. Distal pulses are 2+. No carotid bruits appreciated. ABDOMEN: The patient?s abdomen is soft, nontender, and nondistended. Bowel sounds are positive. No peritoneal signs EXTREMITIES: The patient has no peripheral edema.
--- NOTE | 2023-04-09 11:30 | PM.PNORT ---
Progress Note: A&P Assessment and Plan (1) Fracture of femoral neck: Qualifiers: Encounter type: subsequent encounter Fracture healing: with routine healing Fracture type: closed Laterality: right Qualified Code(s): S72.001D - Fracture of unspecified part of neck of right femur, subsequent encounter for closed fracture with routine healing Code(s): S72.009A - Fracture of unspecified part of neck of unspecified femur, initial encounter for closed fracture Status: Acute Assessment and Plan: Postoperative day 2 right hip bipolar. Patient oriented to self but disoriented to place and time. Right hip incision benign. Neurovascular intact. BM today. PT/OT transfers, ambulate. Pain control. Try to limit narcotics due to confusion. Subjective Subjective Date/Time Seen: 04/09/23 11:30 Post Op day: 2 Principal diagnosis: Right hip femoral neck fracture Interval history: Patient in bathroom. Awake and alert. Confused today. Oriented to person only. Complains of pain right hip. Exam Const: General: comfortable; No acute distress Orientation/consciousness: oriented to person, No oriented to place and No oriented to time HENMT: Head: normal to inspection, normocephalic and atraumatic Resp: Effort & Inspection: normal respiratory effort and no audible wheezes Neuro: General: oriented to person, No oriented to place and No oriented to time Extrem: Right upper extremity: normal to inspection, shoulder/upper arm normal to inspection; no tenderness and no swelling, elbow/forearm normal to inspection; no tenderness and no swelling, wrist normal to inspection and normal ROM; no tenderness and no swelling and Extremity exam: right hand normal to inspection and neuromotor exam normal Right lower extremity: hip/thigh ( dressing in place, clean and dry. Muscle soft.) Details: abnormal to inspection, tenderness, swelling, abnormal ROM Details: pain with active ROM during Details: with ADduction, with ABduction, with extension, with flexion and to internal rotation and pain with passive ROM during Details: to ADduction, to ABduction, to extension, to flexion, to internal rotation and to external rotation, ecchymosis and crepitus; no abrasions and no lacerations, knee Details: normal to inspection, normal ROM and knee ligament exam normal; no tenderness and no swelling, lower leg ( Negative Homans sign) Details: normal to inspection and palpable cord; no erythema, no tenderness, no localized swelling and no ecchymosis, ankle Details: normal ROM ( dorsiflexion and plantar flexion intact) and foot Details: vascular exam Details: dorsalis pedis pulse present and normal capillary refill, tendon exam Details: active flexion normal and active extension normal and motor-sensory exam Details: light-touch normal Location: in all toes; no edema Left lower extremity: normal to inspection, hip/thigh Details: normal to inspection and normal ROM; no tenderness and no swelling, knee Details: normal to inspection; no tenderness and no swelling, lower leg Details: normal to inspection and palpable cord; no tenderness and no localized swelling, ankle Details: normal ROM and foot Details: vascular exam Details: dorsalis pedis pulse present and normal capillary refill and motor-sensory exam light-touch normal in all toes; no edema Objective Data Vital Signs Vital Signs: Vital Signs - 24 hr 04/08/23 13:32 04/08/23 19:06 04/08/23 21:34 Temperature 98 F 98 F Pulse Rate 70 80 80 Respiratory Rate 16 17 Blood Pressure 118/60 154/64 H Pulse Oximetry 98 100 Oxygen Delivery 04/08/23 20:00 04/09/23 04:14 Temperature 97 F L Pulse Rate 68 Respiratory Rate 17 Blood Pressure 161/63 H Pulse Oximetry 99 Oxygen Delivery Room Air Intake/Output Intake/Output: Intake & Output 04/06/23 04/07/23 04/08/23 04/09/23 23:59 23:59 23:59 23:59 Intake Total 1000 1060 910 410 Output Total 2250 2000 1500 600 Balance -1250 -
[2023-04-09 14:00] VITALS: BP 119/56; PULSE 68; RESP 20; TEMP 36.6; O2SAT 100
[2023-04-09 21:05] VITALS: BP 159/66; PULSE 81; RESP 20; TEMP 36.9; O2SAT 98
[2023-04-09 21:18] VITALS: PULSE 81
[2023-04-09] MEDS: metFORMIN HCL 500 MG TABLET PO (21:18)
[2023-04-09] MEDS: METOPROLOL TARTRATE 25 MG TABLET PO (21:18)
[2023-04-09] MEDS: MEMANTINE 5 MG TABLET PO (21:19)
[2023-04-10 04:34] VITALS: BP 152/65; PULSE 72; RESP 18; TEMP 36.4; O2SAT 98
[2023-04-10] MEDS: LEVOTHYROXINE SODIUM 50 MCG TABLET PO (07:22)
--- NOTE | 2023-04-10 09:20 | PM.IMPN ---
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 (2) Dementia: Qualifiers: Dementia behavioral or psychological symptom: unspecified whether behavioral, psychotic, or mood disturbance or anxiety Dementia severity: unspecified severity Dementia type: unspecified type Qualified Code(s): F03.90 - Unspecified dementia, unspecified severity, without behavioral disturbance, psychotic disturbance, mood disturbance, and anxiety Code(s): F03.90 - Unspecified dementia, unspecified severity, without behavioral disturbance, psychotic disturbance, mood disturbance, and anxiety Status: Acute Assessment and Plan: Patient is confused not oriented to person place or time currently, no signs of head trauma. Word salad has been noted since admission, improved today 04/10: Continues to improve (3) Diabetes mellitus: Code(s): E11.9 - Type 2 diabetes mellitus without complications Status: Acute Assessment and Plan: A1c 6.3. Patient highly agitated about finger stick glucose. Track with daily labs only for now. 04/09: Morning labs with stable glucose 04/10: Normal glucose on morning labs (4) Elevated blood pressure reading: Code(s): R03.0 - Elevated blood-pressure reading, without diagnosis of hypertension Status: Acute Assessment and Plan: Blood pressure noted to be highly elevated upon arrival to floor, 203/88. Current blood pressure is 152/65. Patient on metoprolol which is being continued. Blood pressure reviewed 04/10 (5) Fall from ground level: Code(s): W18.30XA - Fall on same level, unspecified, initial encounter Status: Acute Assessment and Plan: Unable to get more information from patient regarding the reason for the fall. Plan Bipolar hip replacement 04/07 PT/OT per Orthopedic surgery anticoagulation heparin SQ BID per orthopedics Patient voiding spontaneously after catheter removal Patient stable from medical standpoint for rehab/skilled therapy when OK with PT/OT/Orthopedic Surgery, awaiting placement acceptance Time Spent With Patient Time with patient: 25 - 35 minutes Subjective Date/time seen: 04/10/23 09:20 Interval history: Greenberg catheter removed yesterday. Patient able to spontaneously void. She is able to transfer with assistance from bed to chair/bedside commode. Still complaining of right hip pain which is expected. Patient alert and seemingly less confused. No other complaints elicited. 12:30 update: RN reports patient adamantly refusing all oral medications today after several attempts. Review of Systems Review of Systems: All systems reviewed & are unremarkable except as noted in HPI and below Exam Narrative: GENERAL: Awake and alert, appears comfortable, easier to communicate with today, still some word choice issues HEENT: Pupils are equally round and briskly reactive to light. Extraocular muscles are intact. Oral mucous membranes are moist without lesions. No traumatic head lesions noted NECK: The patient has no noted JVD. No adenopathy is appreciated. CHEST/LUNGS: Lungs are clear bilaterally without rhonchi, rales, or wheezes. There is no subcutaneous air appreciated. There is no tenderness to the chest wall. HEART: The patient has a regular rate and rhythm. No murmurs, rubs, or gallops are appreciated. Distal pulses are 2+. No carotid bruits appreciated. ABDOMEN: The patient?s abdomen is soft, nontender, and non
--- NOTE | 2023-04-10 11:31 | PM.PNORT ---
Progress Note: A&P Assessment and Plan (1) Fracture of femoral neck: Qualifiers: Encounter type: subsequent encounter Fracture healing: with routine healing Fracture type: closed Laterality: right Qualified Code(s): S72.001D - Fracture of unspecified part of neck of right femur, subsequent encounter for closed fracture with routine healing Code(s): S72.009A - Fracture of unspecified part of neck of unspecified femur, initial encounter for closed fracture Status: Acute Assessment and Plan: Postoperative day 3 right hip bipolar. Patient oriented to self but disoriented to place and time. Right hip incision benign. Neurovascular intact. PT/OT transfers, ambulate. Pain control. Try to limit narcotics due to confusion. Disposition when medically stable. Subjective Subjective Date/Time Seen: 04/10/23 11:31 Post Op day: 3 Principal diagnosis: Right hip femoral neck fracture Interval history: Patient awake and alert. Still Confused today. Oriented to person only. Complains of pain right hip. tolerated therapy. Exam Const: General: comfortable; No acute distress Orientation/consciousness: oriented to person, No oriented to place and No oriented to time HENMT: Head: normal to inspection, normocephalic and atraumatic Resp: Effort & Inspection: normal respiratory effort and no audible wheezes Neuro: General: oriented to person, No oriented to place and No oriented to time Extrem: Right upper extremity: normal to inspection, shoulder/upper arm normal to inspection; no tenderness and no swelling, elbow/forearm normal to inspection; no tenderness and no swelling, wrist normal to inspection and normal ROM; no tenderness and no swelling and Extremity exam: right hand normal to inspection and neuromotor exam normal Right lower extremity: hip/thigh ( dressing in place, clean and dry. Muscle soft.) Details: abnormal to inspection, tenderness, swelling, abnormal ROM Details: pain with active ROM during Details: with ADduction, with ABduction, with extension, with flexion and to internal rotation and pain with passive ROM during Details: to ADduction, to ABduction, to extension, to flexion, to internal rotation and to external rotation, ecchymosis and crepitus; no abrasions and no lacerations, knee Details: normal to inspection, normal ROM and knee ligament exam normal; no tenderness and no swelling, lower leg ( Negative Homans sign) Details: normal to inspection and palpable cord; no erythema, no tenderness, no localized swelling and no ecchymosis, ankle Details: normal ROM ( dorsiflexion and plantar flexion intact) and foot Details: vascular exam Details: dorsalis pedis pulse present and normal capillary refill, tendon exam Details: active flexion normal and active extension normal and motor-sensory exam Details: light-touch normal Location: in all toes; no edema Left lower extremity: normal to inspection, hip/thigh Details: normal to inspection and normal ROM; no tenderness and no swelling, knee Details: normal to inspection; no tenderness and no swelling, lower leg Details: normal to inspection and palpable cord; no tenderness and no localized swelling, ankle Details: normal ROM and foot Details: vascular exam Details: dorsalis pedis pulse present and normal capillary refill and motor-sensory exam light-touch normal in all toes; no edema Objective Data Vital Signs Vital Signs: Vital Signs - 24 hr 04/09/23 14:00 04/09/23 21:05 04/09/23 21:18 Temperature 98 F 98.4 F Pulse Rate 68 81 81 Respiratory Rate 20 20 Blood Pressure 119/56 L 159/66 H Pulse Oximetry 100 98 Oxygen Delivery 04/09/23 20:00 04/10/23 04:34 Temperature 97.6 F Pulse Rate 72 Respiratory Rate 18 Blood Pressure 152/65 H Pulse Oximetry 98 Oxygen Delivery Room Air Intake/Output Intake/Output: Intake & Output 04/07/23 04/08/23 04/09/23 04/10/23 23:59 23:59 23:59 23:59 Intake Total 1060 910 410 360 Out
--- NOTE | 2023-04-10 11:46 | PCOTNOTE ---
Pt. frequency reduced for occupational therapy services to 3-5 x/week as pt. cognition and ability to retain new information is limited and not benefiting from daily education.
--- NOTE | 2023-04-10 12:11 | PC.NURSE ---
Patient alert to self and continues to refuse medication this AM. Time spent educating 15 minutes. Will notify provider.
[2023-04-10 14:00] VITALS: BP 154/55; PULSE 70; RESP 18; TEMP 36.7; O2SAT 100
[2023-04-10] MEDS: ACETAMINOPHEN 325 MG TABLET 650 MG PO (14:04)
[2023-04-10] MEDS: SENNA/DOCUSATE SODIUM TABLET 2 TAB PO ×2 (14:04→21:03)
[2023-04-10] MEDS: MEMANTINE 5 MG TABLET PO ×2 (14:05→21:03)
[2023-04-10] MEDS: METOPROLOL TARTRATE 25 MG TABLET PO ×2 (14:05→21:03)
[2023-04-10 21:03] VITALS: PULSE 98
[2023-04-10] MEDS: metFORMIN HCL 500 MG TABLET PO (21:03)
[2023-04-10] MEDS: HYDROcodone/acetaminophen (*CRX) 7.5-325 MG TABLET 1 TAB PO (21:03)
[2023-04-10 22:00] VITALS: BP 168/64; PULSE 81; RESP 20; TEMP 37; O2SAT 98
[2023-04-11] VITALS (7 sets, daily range): BP systolic 149–182; BP diastolic 63–81; PULSE 68–80; RESP 14–20; TEMP 36.3–37.1; O2SAT 99–100
[2023-04-11] MEDS: FERROUS SULFATE 325 MG TABLET DR BY MOUTH (08:51)
[2023-04-11] MEDS: MEMANTINE 5 MG TABLET PO ×2 (08:51→21:14)
[2023-04-11] MEDS: METOPROLOL TARTRATE 25 MG TABLET PO ×2 (08:51→21:14)
[2023-04-11] MEDS: SENNA/DOCUSATE SODIUM TABLET 2 TAB PO ×2 (08:51→21:15)
[2023-04-11] MEDS: polyethylene glycoL 3350 17 GM POWD.PACK PO (08:54)
[2023-04-11] MEDS: HEPARIN SODIUM 5,000 UNITS/ML VIAL 5000 UNITS SUB-Q ×2 (08:56→21:15)
--- NOTE | 2023-04-11 09:54 | PCNWS ---
Weekly nutritional screen. Patient is tolerating current diet with adequate intake. No weight loss reported. No nutritional needs at this time.
--- NOTE | 2023-04-11 14:55 | PM.IMPN ---
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 (2) Dementia: Qualifiers: Dementia behavioral or psychological symptom: unspecified whether behavioral, psychotic, or mood disturbance or anxiety Dementia severity: unspecified severity Dementia type: unspecified type Qualified Code(s): F03.90 - Unspecified dementia, unspecified severity, without behavioral disturbance, psychotic disturbance, mood disturbance, and anxiety Code(s): F03.90 - Unspecified dementia, unspecified severity, without behavioral disturbance, psychotic disturbance, mood disturbance, and anxiety Status: Acute Assessment and Plan: Patient is confused not oriented to person place or time currently, no signs of head trauma. Word salad has been noted since admission, improved today 04/10: Continues to improve 04/11: little harder to communicate than yesterday (3) Diabetes mellitus: Code(s): E11.9 - Type 2 diabetes mellitus without complications Status: Acute Assessment and Plan: A1c 6.3. Patient highly agitated about finger stick glucose. Track with daily labs only for now. 04/09: Morning labs with stable glucose 04/10: Normal glucose on morning labs 04/11: morning glucose elevated on a.m. labs. (4) Elevated blood pressure reading: Code(s): R03.0 - Elevated blood-pressure reading, without diagnosis of hypertension Status: Acute Assessment and Plan: Patient on metoprolol which is being continued. Patient has been refusing oral medications off and on this hospitalization. Blood pressure reviewed 04/11 (5) Fall from ground level: Code(s): W18.30XA - Fall on same level, unspecified, initial encounter Status: Acute Assessment and Plan: Unable to get more information from patient regarding the reason for the fall. Plan Bipolar hip replacement 04/07 PT/OT per Orthopedic surgery anticoagulation heparin SQ BID per orthopedics Patient voiding spontaneously after catheter removal Patient stable from medical standpoint for rehab/skilled therapy when OK with PT/OT/Orthopedic Surgery, awaiting placement acceptance Time Spent With Patient Time with patient: 25 - 35 minutes Subjective Date/time seen: 04/11/23 14:55 Interval history: Nursing staff reported yesterday the patient refused her oral medication. This morning patient only complains of right hip pain. Her speech is again a little confused. No other acute events noted. Awaiting discharge destination planned for ongoing therapy. Review of Systems Review of Systems: ROS unobtainable: Yes unobtainable due to mental status Exam Narrative: GENERAL: Awake and alert, appears in mild to moderate pain discomfort, Word choice issues / word salad noted HEENT: Pupils are equally round and briskly reactive to light. Extraocular muscles are intact. Oral mucous membranes are moist without lesions. No traumatic head lesions noted NECK: The patient has no noted JVD. No adenopathy is appreciated. CHEST/LUNGS: Lungs are clear bilaterally without rhonchi, rales, or wheezes. There is no subcutaneous air appreciated. There is no tenderness to the chest wall. HEART: The patient has a regular rate and rhythm. No murmurs, rubs, or gallops are appreciated. Distal pulses are 2+. No carotid bruits appreciated. ABDOMEN: The patient?s abdomen is soft, nontender, and nondistended. Bowel sounds are positive. No peritoneal signs EXTREMITIES: The pat
[2023-04-11] MEDS: HYDROcodone/acetaminophen (*CRX) 7.5-325 MG TABLET 1 TAB PO (15:57)
[2023-04-11] MEDS: metFORMIN HCL 500 MG TABLET PO (21:14)
[2023-04-12 03:42] VITALS: BP 155/63; PULSE 66; RESP 18; TEMP 36.7; O2SAT 100
[2023-04-12] MEDS: LEVOTHYROXINE SODIUM 50 MCG TABLET PO (06:48)
[2023-04-12 08:34] VITALS: O2SAT 95
[2023-04-12 08:52] VITALS: BP 151/76; PULSE 73; O2SAT 99
[2023-04-12 08:53] VITALS: PULSE 76
[2023-04-12] MEDS: MEMANTINE 5 MG TABLET PO (08:53)
[2023-04-12] MEDS: METOPROLOL TARTRATE 25 MG TABLET PO (08:53)
[2023-04-12] MEDS: HYDROcodone/acetaminophen (*CRX) 7.5-325 MG TABLET 1 TAB PO (08:54)
[2023-04-12] MEDS: FERROUS SULFATE 325 MG TABLET DR BY MOUTH (08:55)
[2023-04-12] MEDS: polyethylene glycoL 3350 17 GM POWD.PACK PO (08:57)
[2023-04-12] MEDS: SENNA/DOCUSATE SODIUM TABLET 2 TAB PO (08:57)
[2023-04-12 09:20] LABS: Hematocrit 32.6 % (37.0-47.0); Hemoglobin 10.2 g/dL (12.0-15.0); Mean Corpuscular HGB Conc 31.3 g/dl (32-36); Mean Corpuscular Hemoglobin 31.3 pg (26-34); Platelet Count Result 187 k/mm3 (150-375); Red Blood Count 3.26 M/mm3 (4.2-5.4); Red Cell Distribution Width 12.1 % (11.5-14.5); White Blood Count 8.1 K/mm3 (4.5-10.0)
[2023-04-12 09:35] LABS: Anion Gap 7 mmol/L (8-16); Blood Urea Nitrogen 11 mg/dL (7-17); Calcium 8.6 mg/dL (8.4-10.2); Carbon Dioxide 29 mmol/L (22-30); Chloride 102 mmol/L (98-107); Estimated CRCL calculation 41 ml/min; Estimated Glomerular Filt Rate > 60; Glucose 130 mg/dL (65-110); Potassium 3.7 mmol/L (3.4-5.0); Sodium 138 mmol/L (137-145)
[2023-04-12] MEDS: HEPARIN SODIUM 5,000 UNITS/ML VIAL 5000 UNITS SUB-Q (09:51)
--- NOTE | 2023-04-12 10:10 | PM.DS ---
DS: Admitting Diagnosis Discharge Date 04/12/2023 Admitting Diagnosis fracture of right femoral neck DS: Discharge Diagnosis Discharge Diagnosis (1) Fracture of femoral neck: Qualifiers: Encounter type: subsequent encounter Fracture healing: with routine healing Fracture type: closed Laterality: right Qualified Code(s): S72.001D - Fracture of unspecified part of neck of right femur, subsequent encounter for closed fracture with routine healing Code(s): S72.009A - Fracture of unspecified part of neck of unspecified femur, initial encounter for closed fracture Status: Acute (2) Dementia: Qualifiers: Dementia behavioral or psychological symptom: unspecified whether behavioral, psychotic, or mood disturbance or anxiety Dementia severity: unspecified severity Dementia type: unspecified type Qualified Code(s): F03.90 - Unspecified dementia, unspecified severity, without behavioral disturbance, psychotic disturbance, mood disturbance, and anxiety Code(s): F03.90 - Unspecified dementia, unspecified severity, without behavioral disturbance, psychotic disturbance, mood disturbance, and anxiety Status: Acute (3) Diabetes mellitus: Code(s): E11.9 - Type 2 diabetes mellitus without complications Status: Acute (4) Fall from ground level: Code(s): W18.30XA - Fall on same level, unspecified, initial encounter Status: Acute (5) Elevated blood pressure reading: Code(s): R03.0 - Elevated blood-pressure reading, without diagnosis of hypertension Status: Acute DS: Summary Hospital Course Reason for hospitalization: fall with right femoral neck fracture Hospital Course: patient admitted to the hospital with a right femoral neck fracture underwent bipolar hip replacement. Patient did well working with therapy. Occasionally she would resist oral medications. Patient did have dementia and expressive dysphagia at times. Ultimately she did well with therapy and was discharged to continue rehabilitation at SNF. Status at Discharge Cognitive/behavioral status at discharge: awake, alert, baseline confused Functional status at discharge: uses cane/walker Overall status at discharge: patient is progressing back to baseline Time Spent with Patient Time attestation: Total time spent providing and/or coordinating discharge services: Time spent: Greater than 30 minutes Exam Narrative: GENERAL: Awake and alert, appears in mild to moderate pain discomfort, Word choice issues / word salad noted HEENT: Pupils are equally round and briskly reactive to light. Extraocular muscles are intact. Oral mucous membranes are moist without lesions. No traumatic head lesions noted NECK: The patient has no noted JVD. No adenopathy is appreciated. CHEST/LUNGS: Lungs are clear bilaterally without rhonchi, rales, or wheezes. There is no subcutaneous air appreciated. There is no tenderness to the chest wall. HEART: The patient has a regular rate and rhythm. No murmurs, rubs, or gallops are appreciated. Distal pulses are 2+. No carotid bruits appreciated. ABDOMEN: The patient?s abdomen is soft, nontender, and nondistended. Bowel sounds are positive. No peritoneal signs EXTREMITIES: The patient has no peripheral edema. Pain elicited with palpation of the right lateral hip. Right hip dressing clean dry intact with no evidence of surrounding induration. SKIN: The patient?s skin is warm and dry, without rashes or lesions. PSYCHIATRIC: Mood appears normal. Affect appears normal NEUROLOGIC: There are no gross deficits to the cranial nerves. Transfers to chair with assist and walker. Expressive dysphasia/word salad noted, seems to be old/chronic and mistaken for confusion. DS: Data Data Completed and Pending Labs on day of discharge: Labs from last 24 hours 04/12/23 09:15 WBC 8.1 RBC 3.26 L Hgb 10.2 L Hct 32.6 L MCV 100.0 MCH 31.3 MCHC 31.3 L RDW 12.1 Plt Count 187
[2023-04-12 12:13] LABS: Influenza A QL RT-PCR Negative (Negative); Influenza B QL RT-PCR Negative (Negative); SARS-CoV-2 RNA PCR Negative (Negative)
== END 2023-04-12 13:35 | DRG 522 ==
LOC: ANHED 19:19 → ANH2MED 21:58
PROVIDERS: Orthopaedic Surgery; Admitting Provider Family Medicine; Emergency Provider Physician Assistant; PCP Family Medicine; Visit Provider Nurse Practitioner
PROC: 0SRR01A Replacement of Right Hip Joint, Femoral Surface with Metal Synthetic Substitute, Uncemented, Open Approach (ICD-10-PCS; CPT 27125; principal; 2023-04-07 09:00)
DX: S72.001A Fracture of unspecified part of neck of right femur, initial encounter for closed fracture (principal); W18.30XA Fall on same level, unspecified, initial encounter; E11.9 Type 2 diabetes mellitus without complications; D64.9 Anemia, unspecified; R03.0 Elevated blood-pressure reading, without diagnosis of hypertension; F03.90 Unspecified dementia, unspecified severity, without behavioral disturbance, psychotic disturbance, mood disturbance, and anxiety; I25.10 Atherosclerotic heart disease of native coronary artery without angina pectoris; E78.5 Hyperlipidemia, unspecified; Z20.822 Contact with and (suspected) exposure to COVID-19; J45.909 Unspecified asthma, uncomplicated; Z96.651 Presence of right artificial knee joint; Z79.82 Long term (current) use of aspirin; Z79.85 Long-term (current) use of injectable non-insulin antidiabetic drugs; Z79.84 Long term (current) use of oral hypoglycemic drugs; Z95.5 Presence of coronary angioplasty implant and graft; Z87.11 Personal history of peptic ulcer disease; R13.10 Dysphagia, unspecified
CPT/HCPCS: 36415; 51702; 70450; 71045; 72125; 73502; 80048; 80053; 81003; 82948; 83036; 83735; 84100; 84484; 85025; 85027; 85055; 85610; 85730; 87636; 93005; 96374; 96375; 97110; 97116; 97161; 97165; 97530; 97535; 99199; 99285; A9270; C1776; J0171; J0690; J1644; J1885; J2060; J2270; J2405; J2704; J2795; J3010; J7030; J7120

== ENCOUNTER 2023-10-05 10:37 | Outpatient (CLI) | payer OTHER, SELFPAY ==
--- NOTE | ~2023-10-05 | XR_ITS ---
EXAMINATION: XR lumbar spine 2-3V DATE: 10/05/2023 11:12 INDICATION: Low back pain radiating to the right leg TECHNIQUE: Anteroposterior and lateral views of the lumbar spine, and cone-down lateral view of the l umbosacral junction were obtained. COMPARISON: None. FINDINGS: 23 degree lumbar dextroscoliosis. 3-4 mm anterolisthesis L4 on L5. Vertebral body heights are normal. Severe disc height loss with degenerative endplate changes at L2-L3 and L5-S1. Moderate disc height loss at L1-L2, L3-L4 and L4-L5. Severe mid to lower lumbar facet osteoarthritis. Sacral arches are in tact. Mild bilateral sacral erect osteoarthritis. Bipolar type right hip hemiarthroplasty. IMPRESSION: 1. Lumbar dextro scoliosis with severe spondylosis. Reviewed, dictated and finalized at location L. SCREEN CUTTER
== END 2023-10-05 10:38 | disposition home or self-care (01) ==
PROVIDERS: PCP Nurse Practitioner; Visit Provider Nurse Practitioner
DX: M79.604 Pain in right leg (principal); M54.50 Low back pain, unspecified; M41.86 Other forms of scoliosis, lumbar region; M43.06 Spondylolysis, lumbar region
CPT/HCPCS: 72100

== ENCOUNTER 2024-02-18 06:53 | Emergency (ER) | payer OTHER, SELFPAY ==
[2024-02-18] VITALS (18 sets, daily range): BP systolic 108–190; BP diastolic 70–110; PULSE 50–76; RESP 13–25; TEMP 36.9; O2SAT 93–100
--- NOTE | ~2024-02-18 | NM_ITS ---
Nuclear [facility] Procedure: Perfusion/Ventilation Lung Scan History: Pulmonary embolus. Interpretation: Following inhalation of 24 mCi. of Xenon-133, there is symmetrical Xenon entry bilate rally with no evidence for retention on the delayed washout images. 4.9 mCi. of Technetium-labeled microspheres were injected intravenously and multiple images obtained in 8 projections revealed normal perfusion to the lungs without any segmental or subsegmental defects . Impression: Low probability perfusion/ventilation lung scan. Reviewed, dictated and finalized at location M. Impression: Low probability perfusion/ventilation lung scan.
--- NOTE | ~2024-02-18 | XR_ITS ---
EXAMINATION: XR chest 1V portable DATE: 02/18/2024 08:17 INDICATION: Posterior left lower rib pain TECHNIQUE: frontal view of the chest was obtained. COMPARISON: Chest radiograph dated 04/04/2023 FINDINGS: The lungs remain clear with no focal airspace opacities, pulmonary edema, pleural effusion or pneumot horax. The cardiomediastinal silhouette is normal. Coronary artery atherosclerotic calcifications and /or stenting. Mild thoracic levocurvature with moderate spondylosis. Moderate right glenohumeral oste oarthritis. IMPRESSION: 1. No acute cardiopulmonary disease. Reviewed, dictated and finalized at location A.
--- NOTE | 2024-02-18 07:09 | ED.GENADULT ---
HPI - General Adult General Chief complaint: Unspecified Stated complaint: I think I have that thing Time Seen by Provider: 02/18/24 07:09 Source: patient Mode of arrival: ambulatory Limitations: no limitations History of Present Illness HPI narrative: 78 years old white female came to the ED by ambulance complaining of left lower ribs pain posteriorly started within the last few hours. Patient's daughter is telling me that the patient had laundry 2 days ago with quite a bit of lifting. Patient is chronically confused, unknown etiology, oriented to her name only. Unable to get history from the patient who lives by herself, her daughter unable to provide more details. The daughter telling me that patient had history of scoliosis but does not have pain at the left lower ribs. She can take ibuprofen, allergic to Tylenol. Related Data Home Medications Medication Instructions Recorded Confirmed aspirin 81 mg chewable tablet 81 mg PO DAILY 10/19/21 10/05/23 albuterol sulfate 90 mcg inhalation Q4H PRN asthma 04/04/23 10/05/23 clopidogrel 75 mg PO DAILY 04/04/23 10/05/23 ferrous sulfate 325 mg PO DAILY 04/04/23 10/05/23 evolocumab 140 mg/mL subcutaneous 140 mg subcut ONCE 05/17/23 10/05/23 syringe (Repatha Syringe) Allergies Allergy/AdvReac Type Severity Reaction Status Date / Time strawberry Allergy Severe Hives Verified 02/18/24 07:35 Sulfa (Sulfonamide Allergy Severe HIVES Verified 02/18/24 07:35 Antibiotics) ammonium chloride Allergy Unknown AMMONIA Verified 02/18/24 07:35 ALLERGY erythromycin base Allergy Unknown Unknown Verified 02/18/24 07:35 Penicillins Allergy Unknown Unknown Verified 02/18/24 07:35 codeine AdvReac Intermediate VOMITING Verified 02/18/24 07:35 Review of Systems Review of Systems: All systems reviewed & are unremarkable except as noted in HPI and below PMFSH Past Medical History Medical History Asthma Coronary artery disease Dementia Diabetes mellitus Dyslipidemia Expressive aphasia History of CVA (cerebrovascular accident) 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 Peptic ulcer disease Surgical History Surgical History History of coronary artery stent placement History of right hip replacement History of total knee replacement Right knee History of tubal ligation Family History Family History Other Diabetes mellitus Social History Social History Smoking status: Never smoker Second hand tobacco smoke exposure: Yes Alcohol intake: former Substance use: never Substance use type: does not use Lack of Transportation: No Lack of Food: Never True Current Housing: I Have Housing Concerned About Future Housing: No Difficulty Paying Gas/Electric Bills: No Difficulty Paying for Meds: No Currently Unemployed: No Education: High School Diploma/GED Difficulty w/ Childcare or Family Care: No Spiritual care concerns: No Exam Narrative: General appearance: Well-developed, well-nourished Skin: Normal color Head: Normocephalic, nontraumatic Eyes: Clear conjunctiva ENT: Oropharynx normal, ears normal, nose normal Neck: Supple, nontender Chest and respiratory: Airway patent, no respiratory distress, no accessory muscle use Heart: Regular rate/rhythm Abdomen: Soft, nontender, no organomegaly, quiet bowel sounds Vascular: Normal peripheral pulses, normal capillary refill. Musculoskeletal: Diffuse tenderness left lower ribs posteriorly, no bruises, no swelling or rash Neurologic: Alert and oriented to her name only
--- NOTE | 2024-02-18 07:37 | ECG_ITS ---
Test Date: 2024-02-18 08:03:25 Measurements Intervals [place] Rate: 53 P: -11 WI: 158 QRS: -3 QRSD: 90 T: -11 QT: 439 QTc: 414 Interpretive Statements SINUS BRADYCARDIA POSSIBLE RIGHT VENTRICULAR CONDUCTION DELAY [RSR (QR) IN V1/V2] MODERATE VOLTAGE CRITERIA FOR LVH, CONSIDER NORMAL VARIANT [MEETS CRITERIA IN ONE OF: R(aVL), S(V1), R(V5), R(V5/V6)+S(V1)] No previous ECG available for comparison Electronically Signed On 02-18-2024 08:14:00 CDT by Atul Acosta M.D.
[2024-02-18 08:11] LABS: Basophils Absolute Auto 0.1 K/mm3 (0.0-0.1); Basophils Percent Auto 0.6 % (0.2-1.2); Eosinophils Absolute Auto 0.1 K/mm3 (0-0.3); Hematocrit 35.5 % (37.0-47.0); Hemoglobin 11.6 g/dL (12.0-15.0); Immature Granulocyte Absolute 0.02 K/mm3 (0.00-0.031); Immature Granulocyte Percent A 0.2 % (0-0.5); Lymphocytes Percent Auto 10.4 % (18.3-44.2); Mean Corpuscular HGB Conc 32.7 g/dl (32-36); Mean Corpuscular Hemoglobin 31.8 pg (26-34); Mean Corpuscular Volume 97.3 fl (80-100); Monocytes Absolute Auto 0.6 K/mm3 (0.1-0.6); Monocytes Percent Auto 6.6 % (2.6-8.5); Neutrophils Percent Auto 81.2 % (45.5-73.1); Platelet Count Result 164 k/mm3 (150-375); Red Blood Count 3.65 M/mm3 (4.2-5.4); Red Cell Distribution Width 11.7 % (11.5-14.5); White Blood Count 8.6 K/mm3 (4.5-10.0)
--- NOTE | 2024-02-18 08:11 | PC.NURSE ---
patient's daughter is present and was able to give some history for the patient.
[2024-02-18 08:23] LABS: Alanine Aminotransferase 11 U/L (6-35); Albumin Level 4.1 g/dL (3.5-5.1); Alkaline Phosphatase 97 U/L (38-126); Anion Gap 10 mmol/L (4-12); Aspartate Amino Transferase 19 U/L (14-36); Bilirubin,Total 0.5 mg/dL (0.2-1.3); Blood Urea Nitrogen 10 mg/dL (7-17); Calcium 8.8 mg/dL (8.4-10.2); Carbon Dioxide 26 mmol/L (22-30); Chloride 102 mmol/L (98-107); Creatine Kinase 97 U/L (30-135); Estimated Glomerular Filt Rate > 60; Glucose 179 mg/dL (65-110); Potassium 3.6 mmol/L (3.4-5.0); Prothrombin Time 13.5 Seconds (11.1-14.7); Sodium 138 mmol/L (137-145)
[2024-02-18 08:35] LABS: Troponin I < 0.012 ng/mL (0.000-0.034)
[2024-02-18 08:55] LABS: D Dimer 0.54 ug/mL (<0.48)
[2024-02-18 09:10] LABS: Appearance Urine Clear (Clear); Bacteria Urine None Seen /hpf; Bilirubin Urine Negative (Negative); Blood Urine Negative (Negative); Color Urine Yellow (Yellow); Glucose Urine UA Negative (Negative); Ketones Urine Negative (Negative); Leukocyte Esterase Ur 1+ LEU/UL (Negative); Need Manual Microscopic Reviewed; Nitrate Urine Negative (Negative); Non Pathogenic Casts 0-2; Protein Urine Negative (Negative); RBC Urine 0-2 /hpf (0-2); Specific Grav Ur 1.017 (1.001-1.035); Squamous Epithelial Cell Urine Few /hpf (Few); Urobilinogen Urine 0.2 mg/dL (<2.0); WBC Urine 0-5 /hpf (0-3)
[2024-02-18 09:20] LABS: Add Urine Microscopic? YES
--- NOTE | 2024-02-18 11:27 | PC.NURSE ---
Daughter states that she isn't aware of an iodine allergy, but any imaging she has gotten has been without contrast.
--- NOTE | 2024-02-18 11:31 | PC.NURSE ---
Called radiology to update about patients iodine allergy concern and request from [facility]P to do VQ scan. Radiology is calling [facility].
--- NOTE | 2024-02-18 12:35 | PC.NURSE ---
Patient keeps walking out to the hallway and is redirected to her room. d. dimer elevated and CTA ordered to rule out PE- patient told catalyst recovery operator that she is allergic to iodine. There is no documented allergy for the patient but also no history found of a CT preformed with Contrast. Nuc Med will take a couple of hours to come in. patient agitated that it will take so long and starts stating that she can't stay here and she wants to go home. that she doesn't want to wait for the scan. Daughter at bedside and discussed at length with both the patient and her daughter that d dimer was elevated and the scan is to check for any blood clots present in the lungs. patient continues to say that she does not want to wait and wants to leave. Discussed AMA- the patient is unable to tell me what year it is or answer any other orientation questions for me at this time. discussed with daughter that she could sign the paperwork but daughter stated that she isn't signing shit and left and gave her number to the triage nurse. Explained to the patient that since she can't answer the orientation questions so she is not able to sign the paper work herself. patient updated on plan of care.
== END 2024-02-18 16:54 | disposition home or self-care (01) ==
PROVIDERS: Emergency Provider Emergency Medicine; PCP Nurse Practitioner
DX: M54.9 Dorsalgia, unspecified (principal); F03.90 Unspecified dementia, unspecified severity, without behavioral disturbance, psychotic disturbance, mood disturbance, and anxiety; I25.10 Atherosclerotic heart disease of native coronary artery without angina pectoris; E78.5 Hyperlipidemia, unspecified; E11.9 Type 2 diabetes mellitus without complications; J45.909 Unspecified asthma, uncomplicated; R47.01 Aphasia; Z95.5 Presence of coronary angioplasty implant and graft; Z96.641 Presence of right artificial hip joint; Z96.651 Presence of right artificial knee joint; Z87.11 Personal history of peptic ulcer disease; Z86.73 Personal history of transient ischemic attack (TIA), and cerebral infarction without residual deficits; R94.31 Abnormal electrocardiogram [ECG] [EKG]; R00.1 Bradycardia, unspecified
CPT/HCPCS: 36415; 71045; 78582; 80053; 81001; 82550; 84484; 85025; 85380; 85610; 85730; 93005; 99284; A9540; A9558

== ENCOUNTER 2024-04-24 10:37 | Outpatient (RCR) | payer OTHER, SELFPAY ==
[2024-04-24 10:55] VITALS: BMI 29.9
[2024-04-24 10:56] VITALS: BMI 29.9
== END 2024-07-08 11:13 | disposition home or self-care (01) ==
LOC: ANHDMC 10:37
PROVIDERS: PCP Nurse Practitioner; Visit Provider Internal Medicine
DX: E11.9 Type 2 diabetes mellitus without complications (principal); Z71.3 Dietary counseling and surveillance
CPT/HCPCS: 97802